=== PATIENT | female | born 1950 | race Caucasian/White ===

== ENCOUNTER → 2020-02-21 14:28 | Outpatient (CLI) | payer MEDICARE, BC, SELFPAY ==
[2020-02-21 17:55] LABS: Absolute Lymphocyte Count 1.09 X10^3/uL (0.83-4.51); Absolute Neutrophil Count 3.9 X10^3/uL (2.0-7.7); Basophil# 0.04 X10^3/uL; Basophil% 0.7 % (0-1); Eosinophil# 0.57 X10^3/uL; Eosinophils% 9.5 % (0-5); Erythrocyte Sedimentation Rate 7 mm/hr (0-30); Hematocrit 39.9 % (37-47); Hemoglobin 12.1 g/dL (12.0-15.0); Lymphocyte # 1.09 X10^3/ul (4.0); Lymphocyte % 18.1 % (19-41); Mean Corp Hgb Conc 30.3 g/dL (32-36); Mean Corpuscular Hgb 25.3 pg (27.0-32.0); Mean Corpuscular Volume 83.3 fL (81-99); Monocyte% 6.7 % (0-10); NRBC Flagged by Analyzer 0 % (0-5); Neutrophil # 3.89 X10^3/uL (2.7-7.7); Neutrophil % 64.7 % (47-70); Platelet Count 421 K/mm3 (150-450); RBC Distribution Width CV 17.2 % (11.6-14.6); RBC Distribution Width SD 52.9 fl (35.1-43.9); Red Blood Count 4.79 M/mm3 (4.2-5.4)
[2020-02-21 18:11] LABS: ALB/GLOB Ratio 1.4 RATIO (0.9-2.4); AST(SGOT) 17 U/L (15-37); Alanine Aminotransfer ALT/SGPT 28 U/L (13-56); Albumin, Serum 4.4 g/dL (3.2-5.0); Alkaline Phosphatase 105 U/L (45-117); Anion Gap 6 (5-15); BUN 18 mg/dL (7-18); BUN/Creat Ratio 21.8 RATIO (10-20); CRP 4.95 mg/L (0.0-3.0); Calcium,Total 9.4 mg/dL (8.5-10.1); Chloride 101 mmol/L (98-107); Creatinine, Serum 0.83 mg/dL (0.55-1.02); EST Glomerular Filtration Rate 73 mL/min (>60); Est Glom Filt Rate - Afr Amer 88 mL/min (>60); Globulin 3.2 g/dL (2.2-4.2); Glucose 82 mg/dL (74-106); Potassium 3.7 mmol/L (3.5-5.1); Protein, Total 7.6 g/dL (6.4-8.2); Rheumatoid Factor < 10.0 IU/mL (<15); Sodium Level 136 mmol/L (136-145)
[2020-02-24 09:33] LABS: Hepatitis B Surface Antibody Non-Reactive; Hepatitis B Surface Antigen Non-Reactive (Nonreactive); Hepatitis C Antibody Non-Reactive (Nonreactive)
[2020-02-24 16:26] LABS: ANTINUCLEAR ANTIBODIES DIRECT Negative (Negative)
[2020-02-26 03:07] LABS: QNTFERON TB Mitogen Value > 10.00 IU/mL (.); QNTFERON TB Nil Value 0.04 IU/mL (.); QNTFERON TB1+ Ag Value 0.05 IU/mL (.); QNTFERON TB2+ Ag Value 0.03 IU/mL (.)
[2020-02-26 05:34] LABS: CCP IgG Antibodies 5 units (0-19); Hepatitis B Core AB IgM Negative (Negative); QNTIFERON TB Positive Criteria Negative (Negative)
== END ==
PROVIDERS: PCP Family Medicine; Referring Provider Internal Medicine Rheumatology; Visit Provider Internal Medicine Rheumatology
DX: L40.59 Other psoriatic arthropathy (principal); M18.0 Bilateral primary osteoarthritis of first carpometacarpal joints; L40.8 Other psoriasis; M47.892 Other spondylosis, cervical region; M47.897 Other spondylosis, lumbosacral region
CPT/HCPCS: 36415; 80053; 85025; 85652; 86038; 86140; 86200; 86431; 86480; 86705; 86706; 86803; 87340

== ENCOUNTER → 2020-04-06 11:16 | Outpatient (CLI) | payer MEDICARE, BC, SELFPAY ==
[2020-04-06 12:32] LABS: Absolute Lymphocyte Count 1.06 X10^3/uL (0.83-4.51); Absolute Neutrophil Count 3.9 X10^3/uL (2.0-7.7); Basophil# 0.06 X10^3/uL; Eosinophil# 0.31 X10^3/uL; Eosinophils% 5.3 % (0-5); Hematocrit 39.8 % (37-47); Hemoglobin 12.1 g/dL (12.0-15.0); Lymphocyte # 1.06 X10^3/ul (4.0); Lymphocyte % 18.2 % (19-41); Mean Corp Hgb Conc 30.4 g/dL (32-36); Mean Corpuscular Hgb 25.7 pg (27.0-32.0); Mean Corpuscular Volume 84.5 fL (81-99); Mean Platelet Vol. 9.6 fl (6.2-12.0); Monocyte# 0.51 X10^3/uL; Monocyte% 8.7 % (0-10); NRBC Flagged by Analyzer 0 % (0-5); Neutrophil # 3.88 X10^3/uL (2.7-7.7); Neutrophil % 66.5 % (47-70); Platelet Count 390 K/mm3 (150-450); RBC Distribution Width CV 16.5 % (11.6-14.6); RBC Distribution Width SD 50.4 fl (35.1-43.9); Red Blood Count 4.71 M/mm3 (4.2-5.4); White Blood Count 5.8 K/mm3 (4.4-11.0)
[2020-04-06 13:03] LABS: ALB/GLOB Ratio 1.1 RATIO (0.9-2.4); AST(SGOT) 11 U/L (15-37); Alanine Aminotransfer ALT/SGPT 21 U/L (13-56); Alkaline Phosphatase 99 U/L (45-117); Anion Gap 7 (5-15); BUN 17 mg/dL (7-18); BUN/Creat Ratio 20.9 RATIO (10-20); Calcium,Total 9.5 mg/dL (8.5-10.1); Chloride 104 mmol/L (98-107); Creatinine, Serum 0.81 mg/dL (0.55-1.02); EST Glomerular Filtration Rate 74 mL/min (>60); Est Glom Filt Rate - Afr Amer 90 mL/min (>60); Globulin 3.6 g/dL (2.2-4.2); Glucose 79 mg/dL (74-106); Protein, Total 7.6 g/dL (6.4-8.2); Sodium Level 139 mmol/L (136-145)
== END ==
PROVIDERS: PCP Family Medicine; Referring Provider Internal Medicine Rheumatology; Visit Provider Internal Medicine Rheumatology
DX: L40.59 Other psoriatic arthropathy (principal); M18.0 Bilateral primary osteoarthritis of first carpometacarpal joints; M65.341 Trigger finger, right ring finger; L40.8 Other psoriasis; M47.897 Other spondylosis, lumbosacral region; M47.892 Other spondylosis, cervical region; K21.9 Gastro-esophageal reflux disease without esophagitis; F41.9 Anxiety disorder, unspecified; F32.9 Major depressive disorder, single episode, unspecified; E78.5 Hyperlipidemia, unspecified; I83.93 Asymptomatic varicose veins of bilateral lower extremities
CPT/HCPCS: 36415; 80053; 85025

== ENCOUNTER → 2020-05-22 11:08 | Outpatient (CLI) | payer MEDICARE, BC, SELFPAY ==
[2020-05-22 15:30] LABS: Absolute Lymphocyte Count 0.66 X10^3/uL (0.83-4.51); Absolute Neutrophil Count 3.7 X10^3/uL (2.0-7.7); Basophil# 0.06 X10^3/uL; Basophil% 1.1 % (0-1); Eosinophils% 3.7 % (0-5); Hematocrit 36.6 % (37-47); Lymphocyte # 0.66 X10^3/ul (4.0); Lymphocyte % 12.1 % (19-41); Mean Corp Hgb Conc 30.1 g/dL (32-36); Mean Corpuscular Hgb 26.4 pg (27.0-32.0); Mean Platelet Vol. 9.7 fl (6.2-12.0); Monocyte# 0.77 X10^3/uL; Monocyte% 14.1 % (0-10); NRBC Flagged by Analyzer 0 % (0-5); Neutrophil # 3.65 X10^3/uL (2.7-7.7); Neutrophil % 66.8 % (47-70); Platelet Count 503 K/mm3 (150-450); RBC Distribution Width CV 17.9 % (11.6-14.6); RBC Distribution Width SD 56.1 fl (35.1-43.9); Red Blood Count 4.16 M/mm3 (4.2-5.4); White Blood Count 5.5 K/mm3 (4.4-11.0)
[2020-05-22 15:41] LABS: ALB/GLOB Ratio 0.9 RATIO (0.9-2.4); AST(SGOT) 15 U/L (15-37); Alanine Aminotransfer ALT/SGPT 25 U/L (13-56); Albumin, Serum 3.6 g/dL (3.2-5.0); Alkaline Phosphatase 111 U/L (45-117); Anion Gap 6 (5-15); BUN 11 mg/dL (7-18); BUN/Creat Ratio 15.2 RATIO (10-20); Chloride 103 mmol/L (98-107); Creatinine, Serum 0.72 mg/dL (0.55-1.02); EST Glomerular Filtration Rate 84 mL/min (>60); Est Glom Filt Rate - Afr Amer 102 mL/min (>60); Globulin 3.8 g/dL (2.2-4.2); Glucose 79 mg/dL (74-106); Potassium 3.7 mmol/L (3.5-5.1); Protein, Total 7.4 g/dL (6.4-8.2); Sodium Level 138 mmol/L (136-145)
== END ==
PROVIDERS: PCP Family Medicine; Referring Provider Internal Medicine Rheumatology; Visit Provider Internal Medicine Rheumatology
DX: L40.59 Other psoriatic arthropathy (principal); Z79.899 Other long term (current) drug therapy; M18.0 Bilateral primary osteoarthritis of first carpometacarpal joints; M65.341 Trigger finger, right ring finger; L40.8 Other psoriasis; M47.892 Other spondylosis, cervical region; M47.897 Other spondylosis, lumbosacral region; K21.9 Gastro-esophageal reflux disease without esophagitis; F41.9 Anxiety disorder, unspecified; F32.9 Major depressive disorder, single episode, unspecified; E78.5 Hyperlipidemia, unspecified; I83.93 Asymptomatic varicose veins of bilateral lower extremities
CPT/HCPCS: 36415; 80053; 85025

== ENCOUNTER → 2020-08-04 11:37 | Outpatient (CLI) | payer MEDICARE, BC, SELFPAY ==
[2020-08-04 15:19] LABS: Absolute Lymphocyte Count 0.96 X10^3/uL (0.83-4.51); Absolute Neutrophil Count 3.5 X10^3/uL (2.0-7.7); Basophil# 0.03 X10^3/uL; Basophil% 0.6 % (0-1); Eosinophil# 0.26 X10^3/uL; Eosinophils% 4.9 % (0-5); Hematocrit 38.7 % (37-47); Hemoglobin 12.1 g/dL (12.0-15.0); Lymphocyte # 0.96 X10^3/ul (4.0); Lymphocyte % 18.2 % (19-41); Mean Corp Hgb Conc 31.3 g/dL (32-36); Mean Corpuscular Hgb 26.8 pg (27.0-32.0); Mean Corpuscular Volume 85.8 fL (81-99); Mean Platelet Vol. 9.8 fl (6.2-12.0); Monocyte# 0.45 X10^3/uL; Monocyte% 8.5 % (0-10); NRBC Flagged by Analyzer 0 % (0-5); Neutrophil # 3.54 X10^3/uL (2.7-7.7); Neutrophil % 67.2 % (47-70); Platelet Count 408 K/mm3 (150-450); RBC Distribution Width SD 52.7 fl (35.1-43.9); Red Blood Count 4.51 M/mm3 (4.2-5.4); White Blood Count 5.3 K/mm3 (4.4-11.0)
[2020-08-04 15:52] LABS: ALB/GLOB Ratio 1.2 RATIO (0.9-2.4); AST(SGOT) 15 U/L (15-37); Alanine Aminotransfer ALT/SGPT 24 U/L (13-56); Albumin, Serum 4.1 g/dL (3.2-5.0); Alkaline Phosphatase 93 U/L (45-117); Anion Gap 7 (5-15); BUN 12 mg/dL (7-18); BUN/Creat Ratio 14.3 RATIO (10-20); Calcium,Total 9.4 mg/dL (8.5-10.1); Chloride 103 mmol/L (98-107); Creatinine, Serum 0.84 mg/dL (0.55-1.02); EST Glomerular Filtration Rate 71 mL/min (>60); Est Glom Filt Rate - Afr Amer 86 mL/min (>60); Globulin 3.4 g/dL (2.2-4.2); Glucose 80 mg/dL (74-106); Potassium 3.9 mmol/L (3.5-5.1); Protein, Total 7.5 g/dL (6.4-8.2); Sodium Level 138 mmol/L (136-145)
== END ==
PROVIDERS: PCP Family Medicine; Referring Provider Internal Medicine Rheumatology; Visit Provider Internal Medicine Rheumatology
DX: L40.59 Other psoriatic arthropathy (principal); Z79.899 Other long term (current) drug therapy; M18.0 Bilateral primary osteoarthritis of first carpometacarpal joints; M65.341 Trigger finger, right ring finger; L40.8 Other psoriasis; M47.892 Other spondylosis, cervical region; M47.897 Other spondylosis, lumbosacral region; K21.9 Gastro-esophageal reflux disease without esophagitis; F41.9 Anxiety disorder, unspecified; F32.9 Major depressive disorder, single episode, unspecified; E78.5 Hyperlipidemia, unspecified; I83.93 Asymptomatic varicose veins of bilateral lower extremities
CPT/HCPCS: 36415; 80053; 85025

== ENCOUNTER → 2020-11-02 09:03 | Outpatient (CLI) | payer MEDICARE, BC, SELFPAY ==
[2020-11-02 10:38] LABS: Absolute Lymphocyte Count 0.83 X10^3/uL (0.83-4.51); Absolute Neutrophil Count 2.9 X10^3/uL (2.0-7.7); Basophil# 0.04 X10^3/uL; Basophil% 0.9 % (0-1); Eosinophil# 0.22 X10^3/uL; Eosinophils% 5.2 % (0-5); Hematocrit 37.9 % (37-47); Hemoglobin 12.1 g/dL (12.0-15.0); Lymphocyte # 0.83 X10^3/ul (0.83-4.51); Lymphocyte % 19.5 % (19-41); Mean Corp Hgb Conc 31.9 g/dL (32-36); Mean Corpuscular Hgb 27.7 pg (27.0-32.0); Mean Corpuscular Volume 86.7 fL (81-99); Mean Platelet Vol. 9.8 fl (6.2-12.0); Monocyte# 0.29 X10^3/uL; Monocyte% 6.8 % (0-10); NRBC Flagged by Analyzer 0 % (0-5); Neutrophil # 2.86 X10^3/uL (2.7-7.7); Neutrophil % 67.4 % (47-70); Platelet Count 369 K/mm3 (150-450); RBC Distribution Width CV 16.1 % (11.6-14.6); RBC Distribution Width SD 50.7 fl (35.1-43.9); Red Blood Count 4.37 M/mm3 (4.2-5.4); White Blood Count 4.3 K/mm3 (4.4-11.0)
[2020-11-02 11:11] LABS: ALB/GLOB Ratio 1.2 RATIO (0.9-2.4); AST(SGOT) 15 U/L (15-37); Alanine Aminotransfer ALT/SGPT 22 U/L (13-56); Alkaline Phosphatase 94 U/L (45-117); Anion Gap 8 (5-15); BUN 13 mg/dL (7-18); BUN/Creat Ratio 17.5 RATIO (10-20); Calcium,Total 9.3 mg/dL (8.5-10.1); Chloride 103 mmol/L (98-107); Creatinine, Serum 0.74 mg/dL (0.55-1.02); EST Glomerular Filtration Rate 82 mL/min (>60); Est Glom Filt Rate - Afr Amer 99 mL/min (>60); Globulin 3.2 g/dL (2.2-4.2); Glucose 94 mg/dL (74-106); Potassium 3.5 mmol/L (3.5-5.1); Protein, Total 7.2 g/dL (6.4-8.2); Sodium Level 140 mmol/L (136-145)
== END ==
PROVIDERS: PCP Family Medicine; Referring Provider Internal Medicine Rheumatology; Visit Provider Internal Medicine Rheumatology
DX: L40.59 Other psoriatic arthropathy (principal); Z79.899 Other long term (current) drug therapy; M18.0 Bilateral primary osteoarthritis of first carpometacarpal joints; M65.341 Trigger finger, right ring finger; L40.8 Other psoriasis; M47.892 Other spondylosis, cervical region; M47.897 Other spondylosis, lumbosacral region; K21.9 Gastro-esophageal reflux disease without esophagitis; F41.9 Anxiety disorder, unspecified; F32.9 Major depressive disorder, single episode, unspecified; E78.5 Hyperlipidemia, unspecified; I83.93 Asymptomatic varicose veins of bilateral lower extremities
CPT/HCPCS: 36415; 80053; 85025

== ENCOUNTER → 2021-01-19 11:16 | Outpatient (CLI) | payer MEDICARE, BC, SELFPAY ==
[2021-01-19 15:19] LABS: Absolute Lymphocyte Count 0.98 X10^3/uL (0.83-4.51); Basophil# 0.03 X10^3/uL; Basophil% 0.6 % (0-1); Eosinophils% 4.3 % (0-5); Hematocrit 39.8 % (37-47); Hemoglobin 12.5 g/dL (12.0-15.0); Lymphocyte # 0.98 X10^3/ul (0.83-4.51); Mean Corp Hgb Conc 31.4 g/dL (32-36); Mean Corpuscular Hgb 27.4 pg (27.0-32.0); Mean Corpuscular Volume 87.1 fL (81-99); Mean Platelet Vol. 9.7 fl (6.2-12.0); Monocyte# 0.41 X10^3/uL; Monocyte% 8.8 % (0-10); NRBC Flagged by Analyzer 0 % (0-5); Neutrophil # 3.03 X10^3/uL (2.7-7.7); Neutrophil % 65.1 % (47-70); Platelet Count 381 K/mm3 (150-450); RBC Distribution Width CV 15.9 % (11.6-14.6); Red Blood Count 4.57 M/mm3 (4.2-5.4); White Blood Count 4.7 K/mm3 (4.4-11.0)
[2021-01-19 15:47] LABS: ALB/GLOB Ratio 1.3 RATIO (0.9-2.4); AST(SGOT) 13 U/L (15-37); Alanine Aminotransfer ALT/SGPT 25 U/L (13-56); Albumin, Serum 4.3 g/dL (3.2-5.0); Alkaline Phosphatase 99 U/L (45-117); Anion Gap 7 (5-15); BUN 13 mg/dL (7-18); BUN/Creat Ratio 18.2 RATIO (10-20); Calcium,Total 9.6 mg/dL (8.5-10.1); Chloride 102 mmol/L (98-107); Creatinine, Serum 0.71 mg/dL (0.55-1.02); EST Glomerular Filtration Rate 86 mL/min (>60); Est Glom Filt Rate - Afr Amer 104 mL/min (>60); Globulin 3.2 g/dL (2.2-4.2); Glucose 79 mg/dL (74-106); Potassium 4.2 mmol/L (3.5-5.1); Protein, Total 7.5 g/dL (6.4-8.2); Sodium Level 137 mmol/L (136-145)
== END ==
PROVIDERS: PCP Family Medicine; Referring Provider Internal Medicine Rheumatology; Visit Provider Internal Medicine Rheumatology
DX: L40.59 Other psoriatic arthropathy (principal); Z79.899 Other long term (current) drug therapy; M18.0 Bilateral primary osteoarthritis of first carpometacarpal joints; M65.341 Trigger finger, right ring finger; L40.8 Other psoriasis
CPT/HCPCS: 36415; 80053; 85025

== ENCOUNTER → 2021-04-07 12:03 | Outpatient (CLI) | payer MEDICARE, BC, SELFPAY ==
[2021-04-07 15:09] LABS: Absolute Neutrophil Count 3.3 X10^3/uL (2.0-7.7); Basophil# 0.05 X10^3/uL; Eosinophil# 0.14 X10^3/uL; Eosinophils% 2.9 % (0-5); Hematocrit 37.7 % (37-47); Hemoglobin 12.1 g/dL (12.0-15.0); Lymphocyte % 18.6 % (19-41); Mean Corp Hgb Conc 32.1 g/dL (32-36); Mean Corpuscular Hgb 27.6 pg (27.0-32.0); Mean Corpuscular Volume 86.1 fL (81-99); Mean Platelet Vol. 9.7 fl (6.2-12.0); Monocyte# 0.41 X10^3/uL; Monocyte% 8.5 % (0-10); NRBC Flagged by Analyzer 0 % (0-5); Neutrophil # 3.33 X10^3/uL (2.7-7.7); Neutrophil % 68.6 % (47-70); Platelet Count 367 K/mm3 (150-450); RBC Distribution Width CV 15.9 % (11.6-14.6); RBC Distribution Width SD 50.1 fl (35.1-43.9); Red Blood Count 4.38 M/mm3 (4.2-5.4); White Blood Count 4.9 K/mm3 (4.4-11.0)
[2021-04-07 15:22] LABS: ALB/GLOB Ratio 1.2 RATIO (0.9-2.4); AST(SGOT) 14 U/L (15-37); Alanine Aminotransfer ALT/SGPT 22 U/L (13-56); Albumin, Serum 4.1 g/dL (3.2-5.0); Alkaline Phosphatase 102 U/L (45-117); Anion Gap 5 (5-15); BUN 14 mg/dL (7-18); BUN/Creat Ratio 17.2 RATIO (10-20); Calcium,Total 9.4 mg/dL (8.5-10.1); Chloride 103 mmol/L (98-107); Creatinine, Serum 0.82 mg/dL (0.55-1.02); EST Glomerular Filtration Rate 73 mL/min (>60); Est Glom Filt Rate - Afr Amer 89 mL/min (>60); Globulin 3.3 g/dL (2.2-4.2); Glucose 73 mg/dL (74-106); Potassium 3.9 mmol/L (3.5-5.1); Protein, Total 7.4 g/dL (6.4-8.2); Sodium Level 138 mmol/L (136-145)
== END ==
PROVIDERS: PCP Family Medicine; Referring Provider Internal Medicine Rheumatology; Visit Provider Internal Medicine Rheumatology
DX: L40.59 Other psoriatic arthropathy (principal); Z79.899 Other long term (current) drug therapy; M18.0 Bilateral primary osteoarthritis of first carpometacarpal joints; M65.341 Trigger finger, right ring finger; L40.8 Other psoriasis; M47.892 Other spondylosis, cervical region; M47.897 Other spondylosis, lumbosacral region; K21.9 Gastro-esophageal reflux disease without esophagitis; F41.9 Anxiety disorder, unspecified; F32.9 Major depressive disorder, single episode, unspecified; E78.5 Hyperlipidemia, unspecified; I83.93 Asymptomatic varicose veins of bilateral lower extremities
CPT/HCPCS: 36415; 80053; 85025

== ENCOUNTER 2021-07-01 12:06 | Outpatient (CLI) | payer MEDICARE, BC, SELFPAY ==
[2021-07-01 15:13] LABS: Absolute Lymphocyte Count 1.06 X10^3/uL (0.83-4.51); Absolute Neutrophil Count 3.7 X10^3/uL (2.0-7.7); Basophil# 0.05 X10^3/uL; Basophil% 0.9 % (0-1); Eosinophils% 3.7 % (0-5); Hematocrit 38.3 % (37-47); Hemoglobin 11.6 g/dL (12.0-15.0); Lymphocyte # 1.06 X10^3/ul (0.83-4.51); Lymphocyte % 19.4 % (19-41); Mean Corp Hgb Conc 30.3 g/dL (32-36); Mean Corpuscular Hgb 26.1 pg (27.0-32.0); Mean Corpuscular Volume 86.1 fL (81-99); Mean Platelet Vol. 9.8 fl (6.2-12.0); Monocyte# 0.47 X10^3/uL; Monocyte% 8.6 % (0-10); NRBC Flagged by Analyzer 0 % (0-5); Neutrophil # 3.65 X10^3/uL (2.7-7.7); Neutrophil % 66.7 % (47-70); Platelet Count 439 K/mm3 (150-450); RBC Distribution Width CV 15.9 % (11.6-14.6); Red Blood Count 4.45 M/mm3 (4.2-5.4); White Blood Count 5.5 K/mm3 (4.4-11.0)
[2021-07-01 15:53] LABS: ALB/GLOB Ratio 1.2 RATIO (0.9-2.4); AST(SGOT) 12 U/L (15-37); Alanine Aminotransfer ALT/SGPT 26 U/L (13-56); Albumin, Serum 4.2 g/dL (3.2-5.0); Alkaline Phosphatase 98 U/L (45-117); Anion Gap 7 (5-15); BUN 13 mg/dL (7-18); BUN/Creat Ratio 17.2 RATIO (10-20); Calcium,Total 9.6 mg/dL (8.5-10.1); Chloride 103 mmol/L (98-107); Creatinine, Serum 0.76 mg/dL (0.55-1.02); EST Glomerular Filtration Rate 80 mL/min (>60); Est Glom Filt Rate - Afr Amer 97 mL/min (>60); Globulin 3.4 g/dL (2.2-4.2); Glucose 88 mg/dL (74-106); Potassium 3.8 mmol/L (3.5-5.1); Protein, Total 7.6 g/dL (6.4-8.2); Sodium Level 138 mmol/L (136-145)
== END 2021-07-01 23:59 | disposition short-term general hospital (02) ==
LOC: MTLAB 12:08
PROVIDERS: PCP Family Medicine; Referring Provider Internal Medicine Rheumatology; Visit Provider Internal Medicine Rheumatology
DX: L40.59 Other psoriatic arthropathy (principal); M81.0 Age-related osteoporosis without current pathological fracture; M65.341 Trigger finger, right ring finger; L40.8 Other psoriasis; M47.892 Other spondylosis, cervical region; M47.897 Other spondylosis, lumbosacral region; K21.9 Gastro-esophageal reflux disease without esophagitis; F32.A Depression, unspecified; F41.9 Anxiety disorder, unspecified; E78.5 Hyperlipidemia, unspecified; I83.93 Asymptomatic varicose veins of bilateral lower extremities; Z79.899 Other long term (current) drug therapy
CPT/HCPCS: 36415; 80053; 85025

== ENCOUNTER 2021-09-15 12:53 | Outpatient (CLI) | payer MEDICARE, BC, SELFPAY ==
[2021-09-15 15:00] LABS: Absolute Lymphocyte Count 0.76 X10^3/uL (0.83-4.51); Basophil# 0.03 X10^3/uL; Basophil% 0.7 % (0-1); Eosinophils% 4.5 % (0-5); Hematocrit 38.2 % (37-47); Hemoglobin 11.6 g/dL (12.0-15.0); Lymphocyte # 0.76 X10^3/ul (0.83-4.51); Lymphocyte % 17.2 % (19-41); Mean Corp Hgb Conc 30.4 g/dL (32-36); Mean Corpuscular Hgb 26.1 pg (27.0-32.0); Mean Corpuscular Volume 85.8 fL (81-99); Mean Platelet Vol. 10.2 fl (6.2-12.0); Monocyte# 0.42 X10^3/uL; Monocyte% 9.5 % (0-10); NRBC Flagged by Analyzer 0 % (0-5); Neutrophil # 2.97 X10^3/uL (2.7-7.7); Neutrophil % 67.4 % (47-70); Platelet Count 371 K/mm3 (150-450); RBC Distribution Width CV 16.2 % (11.6-14.6); RBC Distribution Width SD 51.5 fl (35.1-43.9); Red Blood Count 4.45 M/mm3 (4.2-5.4); White Blood Count 4.4 K/mm3 (4.4-11.0)
[2021-09-15 15:21] LABS: ALB/GLOB Ratio 1.2 RATIO (0.9-2.4); AST(SGOT) 13 U/L (15-37); Alanine Aminotransfer ALT/SGPT 20 U/L (13-56); Alkaline Phosphatase 96 U/L (45-117); Anion Gap 5 (5-15); BUN 11 mg/dL (7-18); BUN/Creat Ratio 12.2 RATIO (10-20); Calcium,Total 9.2 mg/dL (8.5-10.1); Chloride 106 mmol/L (98-107); EST Glomerular Filtration Rate 66 mL/min (>60); Est Glom Filt Rate - Afr Amer 79 mL/min (>60); Globulin 3.2 g/dL (2.2-4.2); Glucose 113 mg/dL (74-106); Potassium 3.7 mmol/L (3.5-5.1); Protein, Total 7.2 g/dL (6.4-8.2); Sodium Level 138 mmol/L (136-145)
== END 2021-09-15 23:59 | disposition home or self-care (01) ==
LOC: MTLAB 12:55
PROVIDERS: PCP Family Medicine; Referring Provider Internal Medicine Rheumatology; Visit Provider Internal Medicine Rheumatology
DX: L40.59 Other psoriatic arthropathy (principal); M18.0 Bilateral primary osteoarthritis of first carpometacarpal joints; M65.341 Trigger finger, right ring finger; L40.8 Other psoriasis; M47.892 Other spondylosis, cervical region; M47.897 Other spondylosis, lumbosacral region; K21.9 Gastro-esophageal reflux disease without esophagitis; F41.9 Anxiety disorder, unspecified; F32.9 Major depressive disorder, single episode, unspecified; E78.5 Hyperlipidemia, unspecified; I83.93 Asymptomatic varicose veins of bilateral lower extremities; Z79.899 Other long term (current) drug therapy
CPT/HCPCS: 36415; 80053; 85025

== ENCOUNTER → 2021-11-01 | Outpatient (CLI) | payer MEDICARE, BC, SELFPAY ==
[2021-11-01 10:05] LABS: Absolute Lymphocyte Count 0.81 X10^3/uL (0.83-4.51); Absolute Neutrophil Count 2.5 X10^3/uL (2.0-7.7); Basophil# 0.03 X10^3/uL; Basophil% 0.8 % (0-1); Eosinophil# 0.23 X10^3/uL; Eosinophils% 5.8 % (0-5); Lymphocyte # 0.81 X10^3/ul (0.83-4.51); Lymphocyte % 20.6 % (19-41); Mean Corp Hgb Conc 31.6 g/dL (32-36); Mean Corpuscular Volume 82.3 fL (81-99); Mean Platelet Vol. 9.3 fl (6.2-12.0); Monocyte# 0.33 X10^3/uL; Monocyte% 8.4 % (0-10); NRBC Flagged by Analyzer 0 % (0-5); Neutrophil # 2.53 X10^3/uL (2.7-7.7); Neutrophil % 64.1 % (47-70); Platelet Count 318 K/mm3 (150-450); RBC Distribution Width CV 16.3 % (11.6-14.6); RBC Distribution Width SD 49.1 fl (35.1-43.9); Red Blood Count 4.62 M/mm3 (4.2-5.4); White Blood Count 3.9 K/mm3 (4.4-11.0)
[2021-11-01 10:44] LABS: Albumin, Serum 3.8 g/dL (3.2-5.0); BUN 9 mg/dL (7-18); BUN/Creat Ratio 11.2 RATIO (10-20); EST Glomerular Filtration Rate 75 mL/min (>60); Est Glom Filt Rate - Afr Amer 91 mL/min (>60); Glucose 109 mg/dL (74-106); Protein, Total 7.3 g/dL (6.4-8.2)
[2021-11-01 10:45] LABS: ALB/GLOB Ratio 1.1 RATIO (0.9-2.4); AST(SGOT) 11 U/L (15-37); Alanine Aminotransfer ALT/SGPT 23 U/L (13-56); Alkaline Phosphatase 109 U/L (45-117); Anion Gap 7 (5-15); Calcium,Total 9.2 mg/dL (8.5-10.1); Chloride 105 mmol/L (98-107); Globulin 3.5 g/dL (2.2-4.2); Potassium 3.3 mmol/L (3.5-5.1); Sodium Level 139 mmol/L (136-145)
== END | disposition home or self-care (01) ==
PROVIDERS: PCP Family Medicine; Referring Provider Internal Medicine Rheumatology; Visit Provider Internal Medicine Rheumatology
DX: L40.59 Other psoriatic arthropathy (principal); Z79.899 Other long term (current) drug therapy; M18.0 Bilateral primary osteoarthritis of first carpometacarpal joints; M65.341 Trigger finger, right ring finger; L40.8 Other psoriasis; M47.892 Other spondylosis, cervical region; M47.897 Other spondylosis, lumbosacral region; K21.9 Gastro-esophageal reflux disease without esophagitis; F41.9 Anxiety disorder, unspecified; F32.9 Major depressive disorder, single episode, unspecified; E78.5 Hyperlipidemia, unspecified; I83.93 Asymptomatic varicose veins of bilateral lower extremities
CPT/HCPCS: 36415; 80053; 85025

== ENCOUNTER → 2022-01-21 | Outpatient (CLI) | payer MEDICARE, BC, SELFPAY ==
[2022-01-21 12:43] LABS: ALB/GLOB Ratio 1.2 RATIO (0.9-2.4); AST(SGOT) 18 U/L (15-37); Alanine Aminotransfer ALT/SGPT 23 U/L (13-56); Albumin, Serum 3.9 g/dL (3.2-5.0); Alkaline Phosphatase 84 U/L (45-117); Anion Gap 5 (5-15); BUN 10 mg/dL (7-18); BUN/Creat Ratio 12.7 RATIO (10-20); Chloride 104 mmol/L (98-107); Creatinine, Serum 0.79 mg/dL (0.55-1.02); EST Glomerular Filtration Rate 76 mL/min (>60); Est Glom Filt Rate - Afr Amer 92 mL/min (>60); Globulin 3.3 g/dL (2.2-4.2); Glucose 108 mg/dL (74-106); Potassium 3.7 mmol/L (3.5-5.1); Protein, Total 7.2 g/dL (6.4-8.2); Sodium Level 139 mmol/L (136-145)
[2022-01-21 12:47] LABS: Absolute Lymphocyte Count 0.94 X10^3/uL (0.83-4.51); Absolute Neutrophil Count 3.2 X10^3/uL (2.0-7.7); Basophil# 0.03 X10^3/uL; Basophil% 0.6 % (0-1); Eosinophil# 0.21 X10^3/uL; Eosinophils% 4.3 % (0-5); Hematocrit 38.6 % (37-47); Hemoglobin 11.6 g/dL (12.0-15.0); Lymphocyte # 0.94 X10^3/ul (0.83-4.51); Lymphocyte % 19.3 % (19-41); Mean Corp Hgb Conc 30.1 g/dL (32-36); Mean Corpuscular Hgb 25.7 pg (27.0-32.0); Mean Corpuscular Volume 85.4 fL (81-99); Mean Platelet Vol. 10.5 fl (6.2-12.0); Monocyte# 0.49 X10^3/uL; Monocyte% 10.1 % (0-10); NRBC Flagged by Analyzer 0 % (0-5); Neutrophil # 3.17 X10^3/uL (2.7-7.7); Neutrophil % 65.3 % (47-70); Platelet Count 381 K/mm3 (150-450); RBC Distribution Width CV 15.9 % (11.6-14.6); RBC Distribution Width SD 49.3 fl (35.1-43.9); Red Blood Count 4.52 M/mm3 (4.2-5.4); White Blood Count 4.9 K/mm3 (4.4-11.0)
== END | disposition home or self-care (01) ==
LOC: MTLAB 09:45
PROVIDERS: PCP Family Medicine; Referring Provider Internal Medicine Rheumatology; Visit Provider Internal Medicine Rheumatology
DX: L40.59 Other psoriatic arthropathy (principal); Z79.899 Other long term (current) drug therapy; M18.0 Bilateral primary osteoarthritis of first carpometacarpal joints; M65.341 Trigger finger, right ring finger; L40.8 Other psoriasis; M47.892 Other spondylosis, cervical region; M47.897 Other spondylosis, lumbosacral region; K21.9 Gastro-esophageal reflux disease without esophagitis; F41.9 Anxiety disorder, unspecified; F32.9 Major depressive disorder, single episode, unspecified; E78.5 Hyperlipidemia, unspecified; I83.93 Asymptomatic varicose veins of bilateral lower extremities
CPT/HCPCS: 36415; 80053; 85025

== ENCOUNTER → 2022-04-11 | Outpatient (CLI) | payer MEDICARE, BC, SELFPAY ==
[2022-04-11 12:39] LABS: Absolute Lymphocyte Count 0.85 X10^3/uL (0.83-4.51); Absolute Neutrophil Count 3.1 X10^3/uL (2.0-7.7); Basophil# 0.04 X10^3/uL; Basophil% 0.8 % (0-1); Eosinophil# 0.33 X10^3/uL; Eosinophils% 6.9 % (0-5); Hemoglobin 12.3 g/dL (12.0-15.0); Lymphocyte # 0.85 X10^3/ul (0.83-4.51); Lymphocyte % 17.7 % (19-41); Mean Corp Hgb Conc 32.4 g/dL (32-36); Mean Corpuscular Volume 83.3 fL (81-99); Mean Platelet Vol. 9.8 fl (6.2-12.0); Monocyte# 0.43 X10^3/uL; Monocyte% 8.9 % (0-10); NRBC Flagged by Analyzer 0 % (0-5); Neutrophil # 3.13 X10^3/uL (2.7-7.7); Neutrophil % 65.1 % (47-70); Platelet Count 370 K/mm3 (150-450); RBC Distribution Width CV 16.3 % (11.6-14.6); RBC Distribution Width SD 49.2 fl (35.1-43.9); Red Blood Count 4.56 M/mm3 (4.2-5.4); White Blood Count 4.8 K/mm3 (4.4-11.0)
[2022-04-11 13:23] LABS: ALB/GLOB Ratio 1.4 RATIO (0.9-2.4); AST(SGOT) 19 U/L (15-37); Alanine Aminotransfer ALT/SGPT 23 U/L (13-56); Albumin, Serum 4.4 g/dL (3.2-5.0); Alkaline Phosphatase 98 U/L (45-117); Anion Gap 6 (5-15); BUN 10 mg/dL (7-18); BUN/Creat Ratio 13.5 RATIO (10-20); Chloride 103 mmol/L (98-107); Creatinine, Serum 0.74 mg/dL (0.55-1.02); EST Glomerular Filtration Rate 82 mL/min (>60); Est Glom Filt Rate - Afr Amer 99 mL/min (>60); Globulin 3.2 g/dL (2.2-4.2); Glucose 95 mg/dL (74-106); Potassium 3.5 mmol/L (3.5-5.1); Protein, Total 7.6 g/dL (6.4-8.2); Sodium Level 139 mmol/L (136-145)
== END | disposition home or self-care (01) ==
PROVIDERS: PCP Family Medicine; Referring Provider Internal Medicine Rheumatology; Visit Provider Internal Medicine Rheumatology
DX: L40.59 Other psoriatic arthropathy (principal); M18.0 Bilateral primary osteoarthritis of first carpometacarpal joints; M65.341 Trigger finger, right ring finger; L40.8 Other psoriasis; M47.892 Other spondylosis, cervical region; M47.897 Other spondylosis, lumbosacral region; K21.9 Gastro-esophageal reflux disease without esophagitis; E78.5 Hyperlipidemia, unspecified; I83.93 Asymptomatic varicose veins of bilateral lower extremities; Z79.899 Other long term (current) drug therapy
CPT/HCPCS: 36415; 80053; 85025

== ENCOUNTER → 2022-04-20 | Outpatient (CLI) | payer MEDICARE, BC, SELFPAY ==
[2022-04-22 18:07] LABS: QNTFERON TB Mitogen Value > 10.00 IU/mL (.); QNTFERON TB Nil Value 0.02 IU/mL (.); QNTFERON TB1+ Ag Value 0.02 IU/mL (.); QNTFERON TB2+ Ag Value 0.03 IU/mL (.)
[2022-04-25 13:32] LABS: QNTIFERON TB Positive Criteria Negative (Negative)
== END | disposition home or self-care (01) ==
LOC: MTLAB 11:47
PROVIDERS: PCP Family Medicine; Referring Provider Internal Medicine Rheumatology; Visit Provider Internal Medicine Rheumatology
DX: L40.59 Other psoriatic arthropathy (principal); Z79.899 Other long term (current) drug therapy
CPT/HCPCS: 36415; 86480

== ENCOUNTER → 2022-10-17 | Outpatient (CLI) | payer MEDICARE, BC, SELFPAY ==
[2022-10-17 15:13] LABS: Absolute Lymphocyte Count 1.33 X10^3/uL (0.83-4.51); Basophil# 0.03 X10^3/uL; Basophil% 0.6 % (0-1); Eosinophil# 0.16 X10^3/uL; Eosinophils% 3.2 % (0-5); Hematocrit 40.9 % (37-47); Hemoglobin 12.8 g/dL (12.0-15.0); Lymphocyte # 1.33 X10^3/ul (0.83-4.51); Lymphocyte % 26.7 % (19-41); Mean Corp Hgb Conc 31.3 g/dL (32-36); Mean Corpuscular Hgb 26.2 pg (27.0-32.0); Mean Corpuscular Volume 83.8 fL (81-99); Mean Platelet Vol. 9.6 fl (6.2-12.0); Monocyte# 0.47 X10^3/uL; Monocyte% 9.4 % (0-10); NRBC Flagged by Analyzer 0 % (0-5); Neutrophil # 2.98 X10^3/uL (2.7-7.7); Neutrophil % 59.7 % (47-70); Platelet Count 394 K/mm3 (150-450); RBC Distribution Width CV 15.4 % (11.6-14.6); RBC Distribution Width SD 46.8 fl (35.1-43.9); Red Blood Count 4.88 M/mm3 (4.2-5.4)
[2022-10-17 15:39] LABS: ALB/GLOB Ratio 1.4 RATIO (0.9-2.4); AST(SGOT) 16 U/L (15-37); Alanine Aminotransfer ALT/SGPT 22 U/L (13-56); Albumin, Serum 4.6 g/dL (3.2-5.0); Alkaline Phosphatase 104 U/L (45-117); Anion Gap 5 (5-15); BUN 13 mg/dL (7-18); BUN/Creat Ratio 18.1 RATIO (10-20); Calcium,Total 10.1 mg/dL (8.5-10.1); Chloride 103 mmol/L (98-107); Creatinine, Serum 0.72 mg/dL (0.55-1.02); EST Glomerular Filtration Rate 85 mL/min (>60); Est Glom Filt Rate - Afr Amer 102 mL/min (>60); Globulin 3.3 g/dL (2.2-4.2); Glucose 89 mg/dL (74-106); Potassium 3.9 mmol/L (3.5-5.1); Protein, Total 7.9 g/dL (6.4-8.2); Sodium Level 136 mmol/L (136-145)
== END | disposition home or self-care (01) ==
LOC: MTLAB 11:50
PROVIDERS: PCP Family Medicine; Referring Provider Internal Medicine Rheumatology; Visit Provider Internal Medicine Rheumatology
DX: L40.59 Other psoriatic arthropathy (principal); Z79.899 Other long term (current) drug therapy
CPT/HCPCS: 36415; 80053; 85025

== ENCOUNTER → 2023-03-07 | Outpatient (CLI) | payer MEDICARE, BC, SELFPAY ==
[2023-03-07 15:17] LABS: Absolute Lymphocyte Count 1.29 X10^3/uL (0.83-4.51); Absolute Neutrophil Count 2.8 X10^3/uL (2.0-7.7); Basophil# 0.04 X10^3/uL; Basophil% 0.8 % (0-1); Eosinophil# 0.24 X10^3/uL; Eosinophils% 4.9 % (0-5); Hematocrit 38.6 % (37-47); Hemoglobin 12.1 g/dL (12.0-15.0); Lymphocyte # 1.29 X10^3/ul (0.83-4.51); Lymphocyte % 26.3 % (19-41); Mean Corp Hgb Conc 31.3 g/dL (32-36); Mean Corpuscular Hgb 26.8 pg (27.0-32.0); Mean Corpuscular Volume 85.4 fL (81-99); Mean Platelet Vol. 9.3 fl (6.2-12.0); Monocyte% 10.2 % (0-10); NRBC Flagged by Analyzer 0 % (0-5); Neutrophil # 2.83 X10^3/uL (2.7-7.7); Neutrophil % 57.6 % (47-70); Platelet Count 429 K/mm3 (150-450); RBC Distribution Width CV 15.3 % (11.6-14.6); RBC Distribution Width SD 47.5 fl (35.1-43.9); Red Blood Count 4.52 M/mm3 (4.2-5.4); White Blood Count 4.9 K/mm3 (4.4-11.0)
[2023-03-07 16:41] LABS: ALB/GLOB Ratio 1.3 RATIO (0.9-2.4); AST(SGOT) 16 U/L (15-37); Alanine Aminotransfer ALT/SGPT 29 U/L (13-56); Albumin, Serum 4.2 g/dL (3.2-5.0); Alkaline Phosphatase 99 U/L (45-117); Anion Gap 6 (5-15); BUN 9 mg/dL (7-18); Calcium,Total 9.3 mg/dL (8.5-10.1); Chloride 106 mmol/L (98-107); Creatinine, Serum 0.75 mg/dL (0.55-1.02); EST Glomerular Filtration Rate 80 mL/min (>60); Est Glom Filt Rate - Afr Amer 97 mL/min (>60); Globulin 3.2 g/dL (2.2-4.2); Glucose 101 mg/dL (74-106); Potassium 3.8 mmol/L (3.5-5.1); Protein, Total 7.4 g/dL (6.4-8.2); Sodium Level 141 mmol/L (136-145)
== END | disposition home or self-care (01) ==
LOC: MTLAB 12:54
PROVIDERS: PCP Family Medicine; Referring Provider Internal Medicine Rheumatology; Visit Provider Internal Medicine Rheumatology
DX: L40.59 Other psoriatic arthropathy (principal); Z79.899 Other long term (current) drug therapy
CPT/HCPCS: 36415; 80053; 85025

== ENCOUNTER → 2023-07-17 | Outpatient (CLI) | payer MEDICARE, BC, SELFPAY ==
--- OUTSIDE RECORDS SUMMARY | 2023-07-17 11:48 | XMS RPT_ITS | CCD ---
Author Name Unknown Address [address] [place] [address] Organization [facility] Care Team Providers Care Registered Nurse Bone Marrow Transplant Name Role Phone Rc Williamson Attending Unavailable Rc Williamson Primary Care Unavailable Rc Williamson Admitting Unavailable Rc Williamson Admitting Unavailable Rc Williamson Attending Unavailable Rc Williamson Primary Care Unavailable Rc Williamson Attending Unavailable Rc Williamson Primary Care Unavailable Rc Williamson Admitting Unavailable Rc Williamson Attending Unavailable Rc Williamson Primary Care Unavailable Rc Williamson Admitting Unavailable Rc Williamson Attending Unavailable Rc Williamson Primary Care Unavailable Rc Williamson Admitting Unavailable Rc Williamson Admitting Unavailable Rc Williamson Attending Unavailable Rc Williamson Primary Care Unavailable Rc Williamson Attending Unavailable Rc Williamson Primary Care Unavailable Rc Williamson Admitting Unavailable Rc Williamson Admitting Unavailable Rc Williamson Attending Unavailable Rc Williamson Primary Care Unavailable Rc Williamson Attending Unavailable cR Williamson Primary Care Unavailable Rc Williamson Unavailable Unavailable Rc Williamson Unavailable Unavailable Rc Williamson Unavailable Unavailable Rc Williamson Primary Care Provider RC WILLIAMSON Attending Unavailable RC WILLIAMSON Referring Unavailable RC WILLIAMSON Primary Care Unavailable RC WILLIAMSON Attending Unavailable RC WILLIAMSON Referring Unavailable RC WILLIAMSON Primary Care Unavailable RC WILLIAMSON Attending Unavailable RC WILLIAMSON Referring Unavailable RC WILLIAMSON Primary Care Unavailable Rc Williamson Primary Care Provider AIME MONTES Admitting Unavailable FAUZIA DUEÑAS Attending Unavailable AIME MONTES Referring Unavailable RC WILLIAMSON Primary Care Unavailable Rc Williamson Unavailable Unavailable Unavailable Rc Williamson MD Unavailable Unavailable Rc Williamson Unavailable Unavailable Rc Williamson MD Primary Care Provider [phone] Kim BRADFORD, Ashly Unavailable Unavailable Valeria BRADFORD, Unavailable Unavailable RC WILLIAMSON Attending Unavailable RC WILLIAMSON Primary Care Unavailable RC WILLIAMSON Primary Care Unavailable MAMMOGRAPHY-RIKI, SELF-REQUESTED Referring Unavailable LILIANA CHAMBERS Attending Unavailable RC WILLIAMSON Primary Care Unavailable LILIANA CHAMBERS Attending Unavailable RC WILLIAMSON Primary [facility] Unavailable MAMMOGRAPHY-RIKI, SELF-REQUESTED Referring Unavailable Allergies Allergy Classification Reported Allergen(s) Allergy Type Date of Onset Reaction(s) Facility Adhesive Tape (3 sources) Adhesive Tape Substance Allergy [facility] Work Phone: Amitriptyline (4 sources) Amitriptyline; Translations: [AMITRIPTYLINE] Drug Allergy 4 Hives [facility] Repository Doxepin (4 sources) Doxepin; Translations: [DOXEPIN] Drug Allergy 4 [facility] Repository HMG-CoA Reductase Inhibitors (statins) (7 sources) rosuvastatin; Translations: [ROSUVASTATIN] Drug Allergy 4 Itching, Muscle weakness [facility] Repository Pollen (3 sources) bee pollen Substance Allergy [facility] and Work Phone: Serotonin Reuptake Inhibitors (SSRIs) (1 source) FLUoxetine; Translations: [FLUOXETINE] Drug Allergy 4 [facility] Repository Sulfonamides (antibiotic) (4 sources) Sulfonamides (Antibiotic); Translations: [SULFA (SULFONAMIDE ANTIBIOTICS)] Drug Allergy 4 [facility] Rep[facility] Unclassified (1 source) ADHESIVE TAPE-SILICONES; Translations: [ADHESIVE TAPE-SILICONES] Propensity to adverse reactions to drug (disorder) 4 [facility] Repository (11 sources) Adhesive Tape; Translations: [Tape] Propensity to adverse reactions (disorder) [facility] Repository (11 sources) Amitriptyline; Translations: [Elavil] Drug Allergy [facility] Repository (12 sources) atorvastatin; Translations: [atorvastatin] Drug Allergy 3 Itching [facility] Repository (14 sources) Doxepin; Translations: [doxepin] Drug Allergy 4 Rash [facility] Repository (1 source) FLUoxetine; Translations: [Prozac] Drug Allergy [facility] Repository (11 sources) Pollen; Translations: [Pollen] Propensity to adverse reactions (disorder) [facility] Repository (11 sources) rosuvastatin; Translations: [Crestor] Drug Allergy Muscle weakness [facility] Repository (2 sources) Sulfamethoxazole ; Translations: [sulfamethoxazol e] Drug Allergy 3 [facility] Repository (10 sources) Sulfonamides (Antibiotic); Translations: [sulfa] drug allergy [facility] Work Phone: (3 sources) Amitriptyline; Translations: [AMITRIPTYLINE] Drug Allergy 4 Rash [facility] (2 sources) FLUoxetine Drug Allergy 4 Rash [facility] (3 sources) rosuvastatin; Translations: [ROSUVASTATIN] Drug Allergy 4 Myalgia [facility] (2 sources) Sulfonamides (Antibiotic) Propensity to adverse reactions to drug 4 Rash, Itching [facility] (2 sources) *Animal Dander Propensity to adverse reactions to substance 9 Itchy Eyes, Congestion [facility] (2 sources) *Seasonal Propensity to adverse reactions to substance 4 [facility] (2 sources) *Adhesive Tape Propensity to adverse reactions 4 Rash, Blisters [facility] (1 source) Pollen; Translations: [POLLEN EXTRACTS] Propensity to adverse reactions to drug (disorder) 3 [facility] 3 Repository (1 source) OTHER; Translations: [OTHER] Propensity to adverse reactions (disorder) 3 [facility] 3 Repository Medications Current Medications Medication Drug Class(es) Dates Sig (Normalized) Sig (Original) ALLERGEN IMMUNOTHERAPY (2 sources) ALLERGEN IMMUNOTHERAPY by Subcutaneous route. 0 Active ascorbic acid 1000 mg oral tablet (2 sources) Vitamin C take 1000 mg by mouth once daily Ascorbic Acid (VITAMIN C PO) Take 1,000 mg by mouth daily. 0 Active clobetasol propionate 0.5 mg/ml topical cream (6 sources) Corticosteroid Start: 05-31-2018 clobetasol 0.05 % Cream Apply 1 Application topically 2 times daily. 60 g 0 05/31/2018 Active Completed/Discontinued Medications Medication Drug Class(es) Dates Sig (Normalized) Sig (Original) acetaminophen 325 mg oral tablet (15 sources) Acetaminophen 32 5 MG Oral Tablet Quantity: 0 Refills: 0 Ordered: 23-Apr-2019 DO Active Problems Active Problems Problem Classification Problem Date Documented Da te Episodic/Chronic Anxiety disorders (16 sources) Anxiety; Translations: [Anxiety state, unspecified] Chronic Cancer of breast (2 sources) Malignant neoplasm of female breast; Translations: [Malignant neoplasm of unspecified site of unspecified female breast] Onset: 07-24-2013 04-23-2015 Chronic Cancer of breast (13 sources) History of malignant neoplasm of breast; Translations: [Personal history of malignant neoplasm of breast] Episodic Disorders of lipid metabolism (16 sources) Hyperlipidemia; Translations: [Other and unspecified hyperlipidemia] Chronic Immunizations and screening for infectious disease (6 sources) Patient encounter status; Translations: [Other specified vaccination] Episodic Inflammation; infection of eye (except that caused by tuberculosis or sexually transmitteddisease) (6 sources) Herpes zoster ophthalmicus; Translations: [Herpes zoster with other ophthalmic complications] Episodic Mood disorders (17 sources) Depressive disorder; Translations: [Recurrent major depression] Chronic Past or Other Problems Problem Classification Problem Date Documented Da te Episodic/Chronic Deficiency and other anemia (1 source) Anemia; Translations: [Anemia, unspecified] Episodic Malignant neoplasm without specification of site (2 sources) Malignant epithelial neoplasm; 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, unspecified] Onset: 07-24-2013 Resolved: 07-24-2013 07-24-2013 Chronic Mood disorders (2 sources) Mood disorders Onset: 12-24-2021 12-24-2021 Other non-traumatic joint disorders (1 source) Knee pain; Translations: [Pain in joint, lower leg] Episodic Other screening for suspected conditions (not mental disorders or infectious disease) (17 sources) Increased glucose level; Translations: [Other abnormal glucose] Onset: 12-24-2021 Episodic Residual codes; unclassified (3 sources) Needs influenza immunization; Translations: [Need for prophylactic vaccination and inoculation against influenza] Episodic Residual codes; unclassified (10 sources) History of influenza vaccination; Translations: [Other specified conditions influencing health status] Resolved: 08-06-2020 Episodic NEGATED: Highlighted row has not occurred!Residual codes; unclassified (6 sources) Disease Episodic Results Test Name Value Interpretation Reference Range Facil ity Vital Signs Date Time Vital Sign Value Performing Clinician Facility 12-24-2021 11:03-0400 Body mass index (BMI) [Ratio] 30.13 kg/m2 Liliana Chambers [employer] Work Phone: [facility] 12-24-2021 11:03-0400 Body temperature 98.49 [degF] Liliana Chambers [employer] Work Phone: [facility] 12-24-2021 11:03-0400 Body weight 69.4 kg Liliana Chambers [employer] Work Phone: [facility] 12-24-2021 11:03-0400 Diastolic blood pressure 67 mm[Hg] Liliana Chambers [employer] Work Phone: [facility] 12-24-2021 11:03-0400 Heart rate 88 /min Liliana Chambers [employer] Work Phone: [facility] 12-24-2021 11:03-0400 Systolic blood pressure 137 mm[Hg] Liliana Chambers [employer]PER[employer] Work Phone: [facility] 08-20-2021 11:12-0500 Body height 149.86 cm Rc Williamson Work Phone: [facility] [employer] Work Phone: 08-20-2021 11:12-0500 Body mass index (BMI) [Ratio] 30.56 kg/m2 Rc Williamson Work Phone: [facility] Work Phone: 08-20-2021 11:12-0500 Body surface area Derived from formula 1.64 m2 Rcsaida Williamson Work Phone: [facility] Work Phone: 08-20-2021 11:12-0500 Body weight 68.63 kg Rc Job Vinicio Work Phone: [facility] Work Phone: 08-20-2021 11:12-0500 Diastolic blood pressure 78 mm[Hg] Rcsaida Williamson Work Phone: [facility] Work Phone: 08-20-2021 11:12-0500 Heart rate 88 /min Rc Williamson Work Phone: [facility] Work Phone: 08-20-2021 11:12-0500 Systolic blood pressure 138 mm[Hg] Rc Williamson Work Phone: [facility] Work Phone: 02-19-2021 11:16-0400 Body height 149.86 cm Rcsaida Williamson Work Phone: [facility] Work Phone: 02-19-2021 11:16-0400 Body mass index (BMI) [Ratio] 30.12 kg/m2 Rcsaida Williamson Work Phone: [facility] Work Phone: 02-19-2021 11:16-0400 Body surface area Derived from formula 1.63 m2 Rc Williamson Work Phone: [facility] Work Phone: 02-19-2021 11:16-0400 Body temperature 97.3 [degF] Rc Williamson Work Phone: [facility] Work Phone: 02-19-2021 11:16-0400 Body weight 67.65 kg Rc Williamson Work Phone: [facility] Work Phone: 02-19-2021 11:16-0400 Diastolic blood pressure 72 mm[Hg] Rc Williamson Work Phone: [facility] Work Phone: 02-19-2021 11:16-0400 Heart rate 84 /min Rc Williamson Work Phone: [facility] Work Phone: 02-19-2021 11:16-0400 Systolic blood pressure 120 mm[Hg] Rc Williamson Work Phone: [facility] Work Phone: 02-09-2021 10:21-0400 Body height 149.86 cm Rc Williamson Work Phone: [facility] [address] Work Phone: 02-09-2021 10:21-0400 Body mass index (BMI) [Ratio] 30.5 kg/m2 Rc Williamson Work Phone: [facility] [address] Work Phone: 02-09-2021 10:21-0400 Body surface area Derived from formula 1.64 m2 Rc Williamson Work Phone: [facility] [address] Work Phone: 02-09-2021 10:21-0400 Body temperature 97.5 [degF] Rc Williamson Work Phone: [facility] [address] Work Phone: 02-09-2021 10:21-0400 Body weight 68.49 kg Rc Williamson Work Phone: [facility] [address] Work Phone: 02-09-2021 10:21-0400 Diastolic blood pressure 88 mm[Hg] Rc Williamson Work Phone: [facility] [address] Work Phone: 02-09-2021 10:21-0400 Heart rate 81 /min Rc Williamson Work Phone: [facility] [address] Work Phone: 02-09-2021 10:21-0400 Systolic blood pressure 151 mm[Hg] Rc Williamson Work Phone: [facility] [address] Work Phone: 01-12-2021 10:57-0400 Body height 149.86 cm Rc Williamson Work Phone: [facility] [address] Work Phone: 01-12-2021 10:57-0400 Body mass index (BMI) [Ratio] 30.75 kg/m2 Rc Williamson Work Phone: [facility] [address] Work Phone: 01-12-2021 10:57-0400 Body surface area Derived from formula 1.64 m2 Rc Williamson Work Phone: [facility] [address] Work Phone: 01-12-2021 10:57-0400 Body temperature 97.7 [degF] Rc Williamson Work Phone: [facility] [address] Work Phone: 01-12-2021 10:57-0400 Body weight 69.06 kg Rc Williamson Work Phone: [facility] [address] Work Phone: 01-12-2021 10:57-0400 Diastolic blood pressure 88 mm[Hg] Rc Job Williamson Work Phone: [facility] 300 Work Phone: 01-12-2021 10:57-0400 Systolic blood pressure 116 mm[Hg] Rc Williamson Work Phone: [facility] Work Phone: 12-09-2020 10:57-0400 Body height 149.86 cm Rc Job Williamson Work Phone: [facility] Work Phone: 12-09-2020 10:57-0400 Body mass index (BMI) [Ratio] 30.3 kg/m2 Rc Williamson Work Phone: [facility] Work Phone: 12-09-2020 10:57-0400 Body surface area Derived from formula 1.63 m2 Rc Williamson Work Phone: [facility] Work Phone: 12-09-2020 10:57-0400 Body temperature 97.7 [degF] Rc Williamson Work Phone: [facility] Work Phone: 12-09-2020 10:57-0400 Body weight 68.04 kg Rc Williamson Work Phone: [facility] Work Phone: 12-09-2020 10:57-0400 Diastolic blood pressure 78 mm[Hg] Rc Williamson Work Phone: [facility] Work Phone: 12-09-2020 10:57-0400 Systolic blood pressure 122 mm[Hg] Rc Williamson Work Phone: [facility] Work Phone: 04-24-2019 13:52-0500 BMI (Body Mass Index) 32.2 kg/m2 Rc Williamson [facility] [employer] Work Phone: 04-24-2019 13:52-0500 Body weight 72.32 kg Rc Williamson [facility] [employer] [facility] Work Phone: 04-24-2019 13:52-0500 BP Diastolic 72 mm[Hg] Rc Williamson [facility] [employer] Work Phone: Encounters Encounter Date Encounter Type Care Provider Facility Start: 08-19-2022 End: 08-19-2022 ambulatory [facility] Start: 08-19-2022 End: 08-19-2022 Encounter for general adult medical examination without abnormal findings [facility] Start: 01-17-2022 Rx Renewal Rc Williamson Work Phone: [facility] Work Phone: Start: 12-24-2021 ambulatory RC WILLIAMSON Facility:[facility] Start: 12-24-2021 End: 12-24-2021 Office outpatient visit 15 minutes Liliana GARCIA Work Phone: Division of Surgical Oncology Procedures Date Procedure Procedure Detail Performing Clinician Start: 12-24-2021 Screening mammography bi 2-view breast inc cad Self-Requested [facility] Work Phone: Start: 10-31-2019 Radiologic exam knee complete 4/more views External Transcribed Start: 10-18-2019 Xray Ankle 3 View Rc Williamson Start: 10-18-2019 Xray Tibia + Fibula 2 View Rc Williamson Start: 10-18-2019 Radiologic examination tibia & fibula 2 views External Transcribed Start: 10-18-2019 X-ray of right ankle External Transcribe d Start: 04-24-2019 Assay of thyroid stimulating hormone tsh Rc Williamson Start: 04-24-2019 CBC W Auto Differential panel - Blood Rc Williamson Start: 04-24-2019 Comprehensive metabolic 2000 panel Rc Williamson Start: 04-24-2019 Hemoglobin glycosylated a1c Rc Williamson Start: 04-24-2019 Lipid panel Rc Williamson Anal fistulectomy Rc sanchez Decompression of median nerve Rc Williamson Work Phone: Esophagogastroduodenoscopy J josh Williamson Excision of bunion Rc Perez es Hysterectomy cR Williamson Lumpectomy of breast Rc jerez Prosthetic arthroplasty of the hip Rc Williamson Tonsillectomy and adenoidectomy Rc Williamson Total replacement of hip Mike Williamson Work Phone: Plan of Treatment Date Care Activity Detail Author Start: 12-24-2022 Screening mammography MAMMOGRAM SCREENING DISCUSSION [facility] Start: 08-19-2022 EPV, Provider: Rc Williamson, Status: Pen, Time: 11:00 AM EPV, Provider: Rc Williamson, Status: Pen, Time: 11:00 AM [facility] Work Phone: Start: 02-10-2022 Influenza vaccination INFLUENZA VACCINE (#1) [facility] Start: 08-20-2021 EPV, Provider: Rc Williamson, Status: Pen, Time: 11:00 AM EPV, Provider: Rc Williamson, Status: Pen, Time: 11:00 AM [facility] Work Phone: Start: 02-19-2021 EPV, Provider: Rc Williamson, Status: Pen, Time: 11:00 AM EPV, Provider: Rc Williamson, Status: Pen, Time: 11:00 AM [facility] Work Phone: Start: 02-09-2021 POV, Provider: Aime Montes, Status: Pen, Time: 10:30 AM POV, Provider: Aime Montes, Status: Pen, Time: 10:30 AM [facility] Work Phone: Start: 01-12-2021 POV, Provider: Aime Montes, Status: Pen, Time: 10:30 AM POV, Provider: Aime Montes, Status: Pen, Time: 10:30 AM [facility] Work Phone: Start: 12-30-2020 [facility], Provider: Aime Montes, Status: Pen, Time: 11:00 AM [facility], Provider: Aime Montes, Status: Daryl, Time: 11:00 AM [facility] Work Phone: Start: 02-11-2020 Influenza vaccination given [facility] Start: 10-23-2019 CBC W Auto Differential panel - Blood Complete Blood Count [facility] Work Phone: Start: 10-23-2019 Comprehensive metabolic 2000 panel Comprehensive Metabolic Panel [facility] Work Phone: Start: 10-23-2019 HbA1c (Bld) [Mass fraction] [facility] Work Phone: Start: 10-23-2019 TSH Qn TSH - Thyroid Stimulating Hormone, Serum [facility] Work Phone: Start: 10-18-2019 [facility] Work Phone: Start: 01-06-2017 Pneumococcal vaccination Pneumococcal Vaccine Age 65+ (2 of 2 - PCV13) [facility] Start: 2015 Fall risk assessment Falls Risk Assessment [facility] Start: 2015 Pneumococcal vaccination [facility] Start: 2000 Administration of herpes zoster vaccine Zoster Vaccines (1 of 2) [facility] Start: 2000 Screening for malignant neoplasm of colon [facility] Start: 2000 Zoster vaccine hzv live for subcutaneous use ZOSTER (SHINGLES) VACCINE (1 of 2) [facility] Start: 1995 Colonoscopy COLORECTAL CANCER SCREENING DISCUSSION [facility] Start: 1990 Fasting lipid profile LIPID SCREENING [facility] Start: 1971 Screening for malignant neoplasm of cervix CERVICAL CANCER SCREENING DISCUSSION [facility] Start: 1969 Third diphtheria, tetanus and acellular pertussis (DTaP) vaccination TDAP (ADULT) [facility] Start: 1968 Hepatitis C antibody, confirmatory test Hepatitis C Screening [facility] Start: 1968 Tetanus vaccination TETANUS [facility] Start: 1966 COVID-19 Vaccine (1) COVID-19 Vaccine (1) [facility] Start: 1962 Adolescent depression screening assessment Depression Screening (PHQ9) [facility] Start: 1953 History and physical examination, annual for health maintenance Wellness Visit [facility] Start: 1950 Depression screening using PHQ-9 (Patient Health Questionnaire 9) score Depression Screening (PHQ9) [facility] Start: 1950 Fall risk assessment Falls Risk Assessment [facility] Start: 1950 Hepatitis C antibody, confirmatory test [facility] Start: 1950 Screening for malignant neoplasm of colon Colorectal Cancer Screening: Colonoscopy [facility] Start: 1950 Screening for osteoporosis [facility] Start: 1950 Screening mammography Mammogram [facility] Start: 1950 Tetanus vaccination Tetanus: Every 10yrs [facility] Lipid panel Lipid Panel [facility] Work Phone: Immunizations Immunization Date Immunization Notes Care Provider Barrett ballesteros 02-19-2021 Fluzone High-Dose Quadrivalent 0.7 ML Intramuscular Suspension Prefilled Syringe; Translations: [Fluzone High-Dose Quadrivalent 0.7 ML Intramuscular Suspension Prefilled Syringe] Rc Williamson Work Phone: [facility] Work Phone: Payers Date Payer Category Payer Unknown 2015 Medicare 2015 Medicare MEDICARE MEDICAR E PART A & B xxxxxxxxxxx 2015-Present [place] xxxxxxxxx[place] [id number] 2015 Medicare [id number] 2015 Medicare MEDICARE MEDICAR E PART A & B [id number] 2015-Present [place] [id number] 2015 Unknown JEFF BATEMAN OUT OF [facility] xxxxxxxxxxxx 2015-Present [id number] 2015 Unknown [id number] 2015 Unknown ANTHEM BCBS OUT OF [facility] [id number] 2015-Present [id number] 1950 Unknown [id number] 1950 Unknown [id number] [id number] 1950 Unknown [id number] [id number] 1950 Unknown [id number] [id number] 1950 Unknown [id number] [id number] 1950 Unknown [id number] [id number] 1950 Unknown [id number] [id number] 1950 Unknown [id number] [id number] 1950 Unknown [id number] [id number] 1950 Unknown [id number] [id number] 1950 Unknown [id number] [id number] 1950 Unknown [id number] [id number] 1950 Unknown [id number] [id number] 1950 Unknown [id number] [id number] 4 1950 Unknown [id number] [id number] 1950 Unknown [id number] [id number] 1950 Unknown [id number] [id number] Social History Date Type Detail Facility Start: 1950 Sex Assigned At Not on file O hiAReal Start: 07-24-2013 Patient has living will Patient has living will [facility] Work Phone: Start: 07-24-2013 Tobacco smoking status NHIS Ex-smoker [facility] End: 07-24-1998 History of tobacco use Current smoker [facility] End: 07-24-1998 History of tobacco use Cigarette Smoker [facility] Start: 07-24-2013 Tobacco use and exposure Smokeless tobacco non-user [facility] Start: 12-24-2021 Alcohol intake 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) [facility] Start: 12-18-2019 End: 12-24-2021 History SDOH Physical Activity DPW 5 [facility] Start: 12-18-2019 History SDOH Physica l Activity MPS 3 [facility] Start: 12-18-2019 End: 12-24-2021 History SDOH Stress 1 [facility] Start: 12-24-2021 History SDOH Transport Med 2 [facility] NEGATED: Highlighted row - - [facility] Work Phone: Functional Status Date Assessment Result Facility NEGATED: Highlighted row Functional performance Functional status health issues are not documented Disease [facility] Work Phone: Mental Status Date Assessment Result Facility NEGATED: Highlighted row Cognitive function [Interpretation] Cognitive status health issues are not documented Disease -[facility] Work Phone: Clinical Notes 12-30-2020 to 12-24-2021 Liliana Chambers APRNSHIN - 12/24/2021 11:[address] [place] - 12/24/2021 10:20 AM EDT Note Date & Type Note Facility 12-24-2021 History of Present illness Narrative HISTORY OF PRESENT ILLNESS Follow-up (Follow up with mammogram, patient has history of left breast cancer and lumpectomy, patient has no new breast complaints.) 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 The patient received postoperative adjuvant systemic chemotherapy with 4 cycles of dose dense doxorubicin and cyclophosphamide followed by 12 weeks of weekly paclitaxel, which she completed in October 2013. The patient received postoperative adjuvant whole breast radiation therapy locally, which she completed in March 2014. clinic note. The patient was last seen by Dr. Shaw 12/22/2020 and was PRN'd from clinic at that time. Kin returns today for at the time of her annual mammogram. She thought she previously felt a new left breast mass. She has stable, intermittent left breast pain. She denies skin changes, nipple changes, or nipple discharge. REVIEW OF SYSTEMS Negative for additional constitutional, HEENT, cardiovascular, respiratory, gastrointestinal, genitourinary, musculoskeletal, integumentary, neurological, psychiatric, endocrine, or hematologic/lymphatic complaints aside from that which was mentioned in the history of present illness. PHYSICAL EXAMINATION Vital Signs: BP 137/67 Pulse 88 Temp 98.5 F (36.9 C) Wt 69.4 kg (153 lb) BMI 30.13 kg/m Smoking Status Former Smoker The patient's left breast is slightly smaller than her right breast. She has a left breast surgical scar at 1-2:00. There are stable post radiation changes and skin thickening. There is a chronic purplish vascular skin pattern/telangestasia skin pattern to the skin in her upper lateral breast. Mild breast lymphedema. There are no dominant masses present in either breast. There are no nipple abnormalities bilaterally. There is no supraclavicular or axillary adenopathy present. There is no significant breast pain or tenderness on exam today. BREAST IMAGING IMPRESSION: No mammographic evidence of malignancy. BI-RADS: 2: Benign Recommendation: Routine mammography. Recommendation Laterality: Bilateral The current National Comprehensive Cancer Network and [employer] guidelines recommend women undergo a screening mammogram every year over the age of 40 and continue mammographic screening as long as they are in good health. Screening mammography under age 40 may occur for women who are at increased risk for breast cancer. 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 Her bilateral mammogram today is BIRADS 2. Plan: Clinical breast exam is without suspicious findings today. I reviewed the results of today's mammogram with her in detail. I reassured her that her breast imaging appears stable and benign. She should continue routine screening with annual bilateral mammography (due December 2022). We discussed returning to clinic on a PRN basis. We discussed I am comoftable with this, but can see her one more year if she would prefer. She was PRN'd by Dr. Shaw at her last appointment. I encouraged her to continue her breast imaging through [facility] and provided her with our scheduling information. I emphasized the importance of regular self breast exams. She will return to the [facility] Surgical Oncology clinic on a prn basis. We discussed breast lymphedema and she was provided with a self massage handout. Declined referral to physical therapy for more information. She will notify us if she has any breast problems in the future. Kin Dorman is agreeable to this plan and all of her questions were answered today. She was encouraged to call with any questions or concerns. documented in this encounter [facility] 12-24-2021 History of Present illness Narrative Patient offered a medical customer operations representative for sensitive exam. Pt declined documented in this encounter [facility] 12-31-2020 Note PROCEDURE DETAILS Preoperative Diagnosis: Carpal tunnel syndrome, right upper limb, G56.01 Postoperative Diagnosis: Carpal tunnel syndrome, right upper limb, G56.01 Surgeon: Aime Montes Resident/Fellow/Other First Responder: None of these were associated with this case Procedure: 1. R CTR Anesthesia: Tony Weaver Estimated Blood Loss: less than 5 ml Findings: as noted above Specimens(s) Collected: no, Complications: none Tourniquet Times: 8 minutes Patient Returned To/Condition: stable to pacu Operative Report: Indicationspatient presented to the outpatient orthopedic surgical office with numbness and tingling in the median nerve distribution patient tried multiple conservative measures including splints oral medication with no improvement of the symptoms the risk benefits alternatives and indications for treating carpal tunnels syndrome were discussed in detail. EMG evidence did suggest carpal tunnel syndrome as well as physical exam which was consistent with carpal tunnel syndrome surgical treatment injection and further splinting were discussed as well as the risks and benefits of continued nerve compression overall operative time. Patient did wish to proceed with surgical intervention. Written informed consent was at obtained after discussion of the risk benefits alternatives Description of procedurepatient was taken the preoperative holding area once again the risk benefits alternatives indications were discussed the operative site was marked agreed upon the patient was then taken to the operative room by nursing anesthesia staff. The patient was then placed on the operating table in the supine position all bony prominences well-padded and protected the arms extended onto a radiolucent arm board and a well-padded tourniquet was placed on the forearm. Operative timeout was undertaken identifying correct patient site and procedure all in agreement. Preoperative antibiotics were administered prior to incision the upper extremity was then prepped and draped in typical fashion. After prepping and draping Esmarch bandage used to exsanguinate the upper extremity tourniquet was inflated 200 mmHg. A longitudinal incision was made in the palm overlying the transverse carpal ligament. This was done using a 15 blade the subcutaneous tissue was bluntly dissected to the level of the palmar fascia with a 15 blade was then used to incise in line with the skin incision in the palmar fascia. Bipolar cautery was used to provide hemostasis in the wound edges. This exposed the transverse carpal ligament and the palmar stress palmaris brevis was noted mobilized radially and the transverse carpal ligament was incised sharply using a [place] blade this exposed some of the contents of the canal and the proximal distal extents of the ligament were then released using blunt scissors under direct visualization after full release proximally and distally their contents of the carpal tunnel were evaluated there is an hourglass deformity indicative of compressive pathology. The radial leaflet was elevated in the radial border of the nerve as well as the recurrent motor branch were visualized. The wound was then copious irrigated with normal saline solution and the skin was closed with 4-0 Prolene in a horizontal mattress fashion. Xeroform 4 x 4 and a well-padded volar splint was placed on the forearm the patient was awakened from anesthesia transferred to [facility] taken to PACU in stable condition. Patient tolerated procedure without complication all the sponge counts were correct. Postoperative course patient will limit weightbearing on the upper extremity. Keep the splint on for 3 days at which point he can move insert shower following postoperative instructions. They should limit activity and weightbearing through the hand but work on range of motion of the fingers. Given a short pain medicine prescription follow-up in 10 days for stitch removal Attestation: Note Completion: Attending AttestationI performed the procedure without a resident Electronic Signatures: Aime Montes) (Signed 31-Dec-2020 07:49) Authored: Post-Operative Note, Chart Review, Note Completion Last Updated: 31-Dec-2020 07:49 by Aime Montes) [facility] 12-30-2020 Note History & Physical R eviewed: I have reviewed the History and Physical dated: 30-Dec-2020 History and Physical reviewed and relevant findings noted. Patient examined to review pertinent physical findings.: No significant changes Home Medications Reviewed: no changes noted Allergies Reviewed: no changes noted ERAS (Enhanced Recovery After Surgery): ERAS Patient: no Consent: COVID-19 Consent: COVID-19 Risk ConsentSurgeon has reviewed estrada risks related to the risk of joe COVID-19 and if they contract COVID-19 what the risks are. Electronic Signatures: Aime Montes) (Signed 30-Dec-2020 07:24) Authored: History & Physical Reviewed, ERAS, Consent, Note Completion Last Updated: 30-Dec-2020 07:24 by Aime Montes ([facility] Visit for screening mammogram Other screening mammogram [facility]* Pt presents via telephone to discuss her bone density. * She has osteoporosis and high fracture risk. * We discussed fracture risk, weight bearing exercise, adequate calcium and vitamin D intake. We discussed treatment options, risks, benefits and side effects and risks of no treatment, namely worsening osteoporosis and increasing fracture risk. At this time, she declines treatment. Six minutes. [employer] [facility] [employer] Work Phone: History of Present illness NarrativePatient is a pleasant 70-year-old female who presents today in follow-up regarding her right open carpal tunnel release. She is done very well since surgery. She had no longer has any symptoms along the median nerve of the right hand. She does have some appropriate postoperative incisional tenderness but otherwise [facility] Work Phone: History of Present illness NarrativePatient is a very pleasant 70-year-old female presents today in follow-up with regards to her rightwrist open carpal tunnel release. She is done exceedingly well following her surgical intervention she denies any numbness and tingling she occasionally has some pillar pain but this is only after she is been very active. She had no trouble with her scar is very pleased with [facility] Work Phone: History of Present illness Narrative* Pt presents for followup from her eye doctor. * She has ocular zoster, and will need acyclovir for life . Her eye doctor has strongly suggested to her per patient that I prescribe her medicine for her, he will continue to see her and monitor and bill for the condition. * Pt states doing well otherwise, denies other problems or concerns. * Agrees to high dose influenza vaccine today. [employer] [facility] [employer] Work Phone: History of Present illness Narrative* The patient is being seen for the subsequent annual wellness visit. * Past Medical, Surgical and Family History: reviewed and updated in chart. * Medications and Supplements: Review of all medications by a prescribing practitioner or clinical pharmacist (such as prescriptions, OTCs, herbal therapies and supplements) documented in the medical record. * No, the patient is not using opioids. * Patient Self Assessment of Health Status: good. * Tobacco use: Non-User * Alcohol use: Non-User * Illicit drug use: Non-User * Current diet: unhealthy diet. * Exercise Frequency: the patient does not exercise. * Depression/Suicide Screening: . * During the past 2 weeks, the patient has not felt down, depressed or hopeless. * During the past 2 weeks, the patient has not felt little interest or pleasure in doing things. * Hearing Impairment: Patient has significant hearing impairment, She uses a hearing aid. * Cognitive Impairment: No cognitive impairment observed. * Bathing: performs independently. * Dressing: performs independently. * Walking: performs independently. * Managing Finances: performs independently. * Shopping: performs independently. * Managing Medications: performs independently. * Housework / Basic Home Maintenance: performs independently. * Falls Risk Screening:. KIN has not fallen in the last 6 months. * Home safety risk factors: none. * Advance directives:. Patient has living will. Patient has healthcare POA. * Also sees Dr Tovar, rheumatology [facility] Work Phone: Instructions* Name Dates Details Instructions not documented [facility] Work Phone: Summary Purpose Family History No Family History Records Found Mother Name Dates Details Family history of acute myoc ardial infarction(V17.3, Z82.49) Status:Active Family history of hyperlipid emia(V18.19, Z83.438) Status:Active Family history of colonic po lyps(V18.51, Z83.71) Status:Active Father Name Dates Details Family history of heart fail ure(V17.49, Z82.49) Status:Active Sister Name Dates Details Family history of colonic po lyps(V18.51, Z83.71) Status:Active Mother Name Dates Details Family history of acute myoc ardial infarction(V17.3, Z82.49) Status:Active Family history of hyperlipid emia(V18.19, Z83.438) Status:Active Family history of colonic po lyps(V18.51, Z83.71) Status:Active Father Name Dates Details Family history of heart fail ure(V17.49, Z82.49) Status:Active Sister Name Dates Details Family history of colonic po lyps(V18.51, Z83.71) Status:Active Unknown Family Member Name Dates Details Family history of heart fail ure: Father(V17.49, Z82.49) Status:Active Family history of acute myoc ardial infarction: Mother(V17.3, Z82.49) Status:Active Family history of hyperlipid emia: Mother(V18.19, Z83.438) Status:Active Family history of colonic po lyps: Mother, Sister(V18.51, Z83.71) Status:Active Unknown Family Member Name Dates Details Family history of heart fail ure: Father(V17.49, Z82.49) Status:Active Family history of acute myoc ardial infarction: Mother(V17.3, Z82.49) Status:Active Family history of hyperlipid emia: Mother(V18.19, Z83.438) Status:Active Family history of colonic po lyps: Mother, Sister(V18.51, Z83.71) Status:Active Unknown Family Member Name Dates Details Family history of heart fail ure: Father(V17.49, Z82.49) Status:Active Family history of acute myoc ardial infarction: Mother(V17.3, Z82.49) Status:Active Family history of hyperlipid emia: Mother(V18.19, Z83.438) Status:Active Family history of colonic po lyps: Mother, Sister(V18.51, Z83.71) Status:Active Unknown Family Member Name Dates Details Family history of heart fail ure: Father(V17.49, Z82.49) Status:Active Family history of acute myoc ardial infarction: Mother(V17.3, Z82.49) Status:Active Family history of hyperlipid emia: Mother(V18.19, Z83.438) Status:Active Family history of colonic po lyps: Mother, Sister(V18.51, Z83.71) Status:Active Unknown Family Member Name Dates Details Family history of heart fail ure: Father(V17.49, Z82.49) Status:Active Family history of acute myoc ardial infarction: Mother(V17.3, Z82.49) Status:Active Family history of hyperlipid emia: Mother(V18.19, Z83.438) Status:Active Family history of colonic po lyps: Mother, Sister(V18.51, Z83.71) Status:Active Mother Name Dates Details Family history of acute myoc ardial infarction(V17.3, Z82.49) Status:Active Family history of hyperlipid emia(V18.19, Z83.438) Status:Active Family history of colonic po lyps(V18.51, Z83.71) Status:Active Father Name Dates Details Family history of heart fail ure(V17.49, Z82.49) Status:Active Sister Name Dates Details Family history of colonic po lyps(V18.51, Z83.71) Status:Active Unknown Family Member Name Dates Details Family history of heart fail ure: Father(V17.49, Z82.49) Status:Active Family history of acute myoc ardial infarction: Mother(V17.3, Z82.49) Status:Active Family history of hyperlipid emia: Mother(V18.19, Z83.438) Status:Active Family history of colonic po lyps: Mother, Sister(V18.51, Z83.71) Status:Active Unknown Family Member Name Dates Details Family history of heart fail ure: Father(V17.49, Z82.49) Status:Active Family history of acute myoc ardial infarction: Mother(V17.3, Z82.49) Status:Active Family history of hyperlipid emia: Mother(V18.19, Z83.438) Status:Active Family history of colonic po lyps: Mother, Sister(V18.51, Z83.71) Status:Active Unknown Family Member Name Dates Details Family history of heart fail ure: Father(V17.49, Z82.49) Status:Active Family history of acute myoc ardial infarction: Mother(V17.3, Z82.49) Status:Active Family history of hyperlipid emia: Mother(V18.19, Z83.438) Status:Active Family history of colonic po lyps: Mother, Sister(V18.51, Z83.71) Status:Active Unknown Family Member Name Dates Details Family history of heart fail ure: Father(V17.49, Z82.49) Status:Active Family history of acute myoc ardial infarction: Mother(V17.3, Z82.49) Status:Active Family history of hyperlipid emia: Mother(V18.19, Z83.438) Status:Active Family history of colonic po lyps: Mother, Sister(V18.51, Z83.71) Status:Active Unknown Family Member Name Dates Details Family history of heart fail ure: Father(V17.49, Z82.49) Status:Active Family history of acute myoc ardial infarction: Mother(V17.3, Z82.49) Status:Active Family history of hyperlipid emia: Mother(V18.19, Z83.438) Status:Active Family history of colonic po lyps: Mother, Sister(V18.51, Z83.71) Status:Active Advance Directives No Advanced Directives Records FoundDocuments on File Type Date Recorded Patient Swimming Pool Attendant Expl anation Advance Directives and Livin g Will 10/18/2019 12:08 PM Documents on File Type Date Recorded Patient Swimming Pool Attendant Expl anation Advance Directives and Livin g Will 10/31/2019 10:56 AM Documents on File Type Date Recorded Patient Swimming Pool Attendant Expl anation Advance Directives and Livin g Will 10/31/2019 10:56 AM Assessments Diagnosis Pain of lower extremity, unspecified laterality Diagnosis Right ankle pain, unspecified chronicity Diagnosis Right knee pain, unspecified chronicity Diagnosis Carpal tunnel syndrome of right wrist- Primary Reason for Referral Status Reason Specialty Diagnoses / Procedures Referred By Contact Referred To Contact Authorized Neurology Diagnoses Carpal tunnel syndrome of right wrist Aime Montes DO [address] [place] [address] Fauzia Dueñas MD [address] [place] [id number] Chief Complaint PT HERE FOR 10 DAY PO RIGHT CTR. SX 7/21/21. STATES HAND IS DOING GREAT. DENIES NUMBNESS AND TINGLING. MINIMAL BURNING. WEARING BRACE.4 WK PO R CTRChief Complaint: KIN DORMAN is here with a chief complaint of HERE TO DISCUSS HER ACYCLOVIR 400MG; CURRENTLY MANAGED BY DR GUERRERO; STATES HE IS REQUESTING JOJ TAKE OVER ORDERING THE MEDICATION. Additional Source Comments INFORMATION SOURCE (unrecogn ized section and content) DATE CREATED AUTHOR AUTHOR'S ORGANIZ ATION 11/01/2019 [facility] DATE CREATED AUTHOR AUTHOR'S ORGANIZ ATION 11/07/2020 [facility] DATE CREATED AUTHOR AUTHOR'S ORGANIZ ATION 01/05/2021 [facility] DATE CREATED AUTHOR AUTHOR'S ORGANIZ ATION 08/21/2021 [facility] DATE CREATED AUTHOR AUTHOR'S ORGANIZ ATION 08/22/2021 [employer] DATE CREATED AUTHOR AUTHOR'S ORGANIZ ATION 08/21/2022 [facility] DATE CREATED AUTHOR AUTHOR'S ORGANIZ ATION 11/18/2022 [facility] Quick Note - Kaitlin Smith TECHNOLOGIST - 10/18/2019 12:00 PM EDT Miscellaneous Notes (unrecog nized section and content) catarina and swetha wore surgical masks and gloves. Patient wore surgical mask documented in this encounter Reason for Visit (unrecogniz ed section and content) Specialty Diagnoses / Procedures Referred By Morgan t Referred To Contact Diagnoses Visit for screening mammogram Procedures MAMMO SCREENING WITH AMANDA BILATERAL MAMMO SCREENING BILATERAL Mammography-Riki Self-Requested [address] [place] [address] Referral ID Status Reason Start Date Expiration Date V isits Requested Visits Authorized [id number] New Request 10/01/2021 10/26/2022 1 1 Care Teams (unrecognized sec tion and content) Registered Nurse Bone Marrow Transplant Relationship Specialty Start Date End Date Rc Williamson MD PCP - General Family Medicine 07/16/13 Ashly Alvarez, RN Registered Nurse Surgical Oncology 07/24/13 Rebecca Shaw, RN Registered Nurse 09/11/13 FOR RECORDS PERTAINING TO PATIENTS WHO ARE OR HAVE BEEN ENROLLED IN A CHEMICAL DEPENDENCY/SUBSTANCEABUSE PROGRAM, SOME INFORMATION MAY BE OMITTED. This clinical summary was aggregated from multiple sources. Caution should be exercised in using it in the provision of clinical care. This summary normalizes information from multiple sources, and as a consequence, information in this document may materially change the coding, format and clinical context of patient data. In addition, data may be omitted in some cases. CLINICAL DECISIONS SHOULD BE BASED ON THE PRIMARY CLINICAL RECORDS. [facility] [employer] [facility]. provides no warranty or guarantee of the accuracy or completeness of information in this document.
[2023-07-17 15:38] LABS: Absolute Neutrophil Count 3.1 X10^3/uL (2.0-7.7); Basophil# 0.03 X10^3/uL; Basophil% 0.6 % (0-1); Eosinophil# 0.26 X10^3/uL; Hematocrit 36.6 % (37-47); Hemoglobin 11.6 g/dL (12.0-15.0); Lymphocyte % 25.2 % (19-41); Mean Corp Hgb Conc 31.7 g/dL (32-36); Mean Corpuscular Volume 85.1 fL (81-99); Mean Platelet Vol. 9.8 fl (6.2-12.0); Monocyte# 0.47 X10^3/uL; Monocyte% 9.1 % (0-10); NRBC Flagged by Analyzer 0 % (0-5); Neutrophil # 3.07 X10^3/uL (2.7-7.7); Neutrophil % 59.7 % (47-70); Platelet Count 404 K/mm3 (150-450); RBC Distribution Width CV 14.9 % (11.6-14.6); RBC Distribution Width SD 46.2 fl (35.1-43.9); White Blood Count 5.2 K/mm3 (4.4-11.0)
[2023-07-17 16:06] LABS: ALB/GLOB Ratio 1.4 RATIO (0.9-2.4); AST(SGOT) 14 U/L (15-37); Alanine Aminotransfer ALT/SGPT 24 U/L (13-56); Albumin, Serum 4.2 g/dL (3.2-5.0); Alkaline Phosphatase 106 U/L (45-117); Anion Gap 6 (5-15); BUN 12 mg/dL (7-18); BUN/Creat Ratio 16.8 RATIO (10-20); Calcium,Total 9.5 mg/dL (8.5-10.1); Chloride 101 mmol/L (98-107); Creatinine, Serum 0.72 mg/dL (0.55-1.02); EST Glomerular Filtration Rate 85 mL/min (>60); Est Glom Filt Rate - Afr Amer 103 mL/min (>60); Glucose 72 mg/dL (74-106); Potassium 3.4 mmol/L (3.5-5.1); Protein, Total 7.2 g/dL (6.4-8.2); Sodium Level 134 mmol/L (136-145)
== END | disposition home or self-care (01) ==
PROVIDERS: PCP Family Medicine; Referring Provider Internal Medicine Rheumatology; Visit Provider Internal Medicine Rheumatology
DX: L40.59 Other psoriatic arthropathy (principal); Z79.899 Other long term (current) drug therapy; M18.0 Bilateral primary osteoarthritis of first carpometacarpal joints; L40.8 Other psoriasis
CPT/HCPCS: 36415; 80053; 85025

== ENCOUNTER → 2024-01-22 | Outpatient (CLI) | payer MEDICARE, BC, SELFPAY ==
[2024-01-22 15:16] LABS: Absolute Lymphocyte Count 1.57 X10^3/uL (0.83-4.51); Absolute Neutrophil Count 3.1 X10^3/uL (2.0-7.7); Basophil# 0.07 X10^3/uL; Basophil% 1.2 % (0-1); Eosinophil# 0.38 X10^3/uL; Eosinophils% 6.7 % (0-5); Hematocrit 37.5 % (37-47); Hemoglobin 11.5 g/dL (12.0-15.0); Lymphocyte # 1.57 X10^3/ul (0.83-4.51); Lymphocyte % 27.9 % (19-41); Mean Corp Hgb Conc 30.7 g/dL (32-36); Mean Corpuscular Hgb 25.7 pg (27.0-32.0); Mean Corpuscular Volume 83.9 fL (81-99); Mean Platelet Vol. 9.6 fl (6.2-12.0); Monocyte# 0.48 X10^3/uL; Monocyte% 8.5 % (0-10); NRBC Flagged by Analyzer 0 % (0-5); Neutrophil # 3.12 X10^3/uL (2.7-7.7); Neutrophil % 55.5 % (47-70); Platelet Count 374 K/mm3 (150-450); RBC Distribution Width SD 45.9 fl (35.1-43.9); Red Blood Count 4.47 M/mm3 (4.2-5.4); White Blood Count 5.6 K/mm3 (4.4-11.0)
[2024-01-22 16:01] LABS: ALB/GLOB Ratio 1.2 RATIO (0.9-2.4); AST(SGOT) 15 U/L (15-37); Alanine Aminotransfer ALT/SGPT 21 U/L (13-56); Albumin, Serum 4.2 g/dL (3.2-5.0); Alkaline Phosphatase 110 U/L (45-117); Anion Gap 5 (5-15); BUN 13 mg/dL (7-18); BUN/Creat Ratio 18.9 RATIO (10-20); Calcium,Total 9.7 mg/dL (8.5-10.1); Chloride 103 mmol/L (98-107); Cholesterol 261 mg/dL (200); Creatinine, Serum 0.69 mg/dL (0.55-1.02); EST Glomerular Filtration Rate 89 mL/min (>60); Est Glom Filt Rate - Afr Amer 108 mL/min (>60); Globulin 3.4 g/dL (2.2-4.2); Glucose 93 mg/dL (74-106); High Density Lipoprotein 46 mg/dL; Protein, Total 7.6 g/dL (6.4-8.2); Sodium Level 135 mmol/L (136-145); Triglycerides 276 mg/dL; Very Low Density Lipoprotein 55 mg/dL (5-40)
[2024-01-22 17:12] LABS: Hemoglobin A1c 5.4 % (3.8-5.6)
== END | disposition home or self-care (01) ==
LOC: MTLAB 12:44
PROVIDERS: PCP Family Medicine; Referring Provider Internal Medicine Rheumatology; Visit Provider Internal Medicine Rheumatology
DX: L40.59 Other psoriatic arthropathy (principal); Z79.899 Other long term (current) drug therapy; M18.0 Bilateral primary osteoarthritis of first carpometacarpal joints; M65.341 Trigger finger, right ring finger; R73.09 Other abnormal glucose; E78.49 Other hyperlipidemia
CPT/HCPCS: 36415; 80053; 80061; 83036; 85025

== ENCOUNTER → 2024-07-05 | Outpatient (CLI) | payer MEDICARE, BC, SELFPAY ==
[2024-07-05 15:12] LABS: Absolute Neutrophil Count 3.5 X10^3/uL (2.0-7.7); Basophil# 0.05 X10^3/uL; Basophil% 0.8 % (0-1); Eosinophils% 4.9 % (0-5); Hemoglobin 11.1 g/dL (12.0-15.0); Lymphocyte % 26.3 % (19-41); Mean Corpuscular Hgb 24.3 pg (27.0-32.0); Mean Platelet Vol. 9.5 fl (6.2-12.0); Monocyte# 0.61 X10^3/uL; NRBC Flagged by Analyzer 0 % (0-5); Neutrophil # 3.51 X10^3/uL (2.7-7.7); Neutrophil % 57.7 % (47-70); Platelet Count 397 K/mm3 (150-450); RBC Distribution Width CV 16.3 % (11.6-14.6); RBC Distribution Width SD 48.5 fl (35.1-43.9); Red Blood Count 4.57 M/mm3 (4.2-5.4); White Blood Count 6.1 K/mm3 (4.4-11.0)
[2024-07-05 15:53] LABS: ALB/GLOB Ratio 1.2 RATIO (0.9-2.4); AST(SGOT) 21 U/L (15-37); Alanine Aminotransfer ALT/SGPT 35 U/L (13-56); Albumin, Serum 4.3 g/dL (3.2-5.0); Alkaline Phosphatase 115 U/L (45-117); Anion Gap 6 (5-15); BUN 12 mg/dL (7-18); BUN/Creat Ratio 15.7 RATIO (10-20); Calcium,Total 10.2 mg/dL (8.5-10.1); Chloride 103 mmol/L (98-107); Creatinine, Serum 0.76 mg/dL (0.55-1.02); EST Glomerular Filtration Rate 79 mL/min (>60); Est Glom Filt Rate - Afr Amer 95 mL/min (>60); Globulin 3.6 g/dL (2.2-4.2); Glucose 74 mg/dL (74-106); Potassium 4.1 mmol/L (3.5-5.1); Protein, Total 7.9 g/dL (6.4-8.2); Sodium Level 137 mmol/L (136-145)
== END | disposition home or self-care (01) ==
LOC: MTLAB 10:47
PROVIDERS: PCP Family Medicine; Referring Provider Internal Medicine Rheumatology; Visit Provider Internal Medicine Rheumatology
DX: L40.59 Other psoriatic arthropathy (principal); Z79.899 Other long term (current) drug therapy; M18.0 Bilateral primary osteoarthritis of first carpometacarpal joints; M65.341 Trigger finger, right ring finger
CPT/HCPCS: 36415; 80053; 85025

== ENCOUNTER → 2024-10-17 | Outpatient (CLI) | payer MEDICARE, BC, SELFPAY ==
[2024-10-17 13:33] LABS: Absolute Lymphocyte Count 1.35 X10^3/uL (0.83-4.51); Absolute Neutrophil Count 3.9 X10^3/uL (2.0-7.7); Basophil# 0.05 X10^3/uL; Basophil% 0.8 % (0-1); Eosinophil# 0.32 X10^3/uL; Eosinophils% 5.2 % (0-5); Hematocrit 35.7 % (37-47); Hemoglobin 10.9 g/dL (12.0-15.0); Lymphocyte # 1.35 X10^3/ul (0.83-4.51); Lymphocyte % 21.8 % (19-41); Mean Corp Hgb Conc 30.5 g/dL (32-36); Mean Corpuscular Hgb 25.1 pg (27.0-32.0); Mean Corpuscular Volume 82.3 fL (81-99); Mean Platelet Vol. 10.1 fl (6.2-12.0); Monocyte# 0.54 X10^3/uL; Monocyte% 8.7 % (0-10); NRBC Flagged by Analyzer 0 % (0-5); Neutrophil # 3.89 X10^3/uL (2.7-7.7); Platelet Count 409 K/mm3 (150-450); RBC Distribution Width CV 16.4 % (11.6-14.6); RBC Distribution Width SD 49.4 fl (35.1-43.9); Red Blood Count 4.34 M/mm3 (4.2-5.4); White Blood Count 6.2 K/mm3 (4.4-11.0)
[2024-10-17 14:10] LABS: ALB/GLOB Ratio 1.7 RATIO (0.9-2.4); AST(SGOT) 16 U/L (<=31); Alanine Aminotransfer ALT/SGPT 13 U/L (<=34); Albumin, Serum 4.6 g/dL (3.4-4.8); Alkaline Phosphatase 112 U/L (35-104); Anion Gap 12 (5-15); BUN 14 mg/dL (4-19); BUN/Creat Ratio 18.4 RATIO (10-20); Calcium,Total 9.8 mg/dL (7.6-11.0); Carbon Dioxide 24.9 mmol/L (21.0-32.0); Chloride 103 mmol/L (98-108); Creatinine, Serum 0.75 mg/dL (0.70-1.20); EST Glomerular Filtration Rate 84 (>60); Globulin 2.7 g/dL (2.2-4.2); Glucose 97 mg/dL (70-99); Potassium 4.3 mmol/L (3.3-5.1); Protein, Total 7.3 g/dL (5.9-8.4); Sodium Level 139 mmol/L (133-145); Total Bilirubin 0.21 mg/dL (0.00-1.30)
== END | disposition home or self-care (01) ==
LOC: MTLAB 09:54
PROVIDERS: PCP Family Medicine; Referring Provider Internal Medicine Rheumatology; Visit Provider Internal Medicine Rheumatology
DX: L40.59 Other psoriatic arthropathy (principal); Z79.899 Other long term (current) drug therapy
CPT/HCPCS: 36415; 80053; 85025

== ENCOUNTER → 2024-12-17 | Outpatient (CLI) | payer MEDICARE, BC, SELFPAY ==
[2024-12-17 15:49] LABS: Hematocrit 38.3 % (37-47); Hemoglobin 11.5 g/dL (12.0-15.0); Immature Granulocytes Count 0.050 X10^3/uL (0.0-0.0); Mean Corp Hgb Conc 30.0 g/dL (32-36); Mean Corpuscular Volume 82.4 fL (81-99); Mean Platelet Vol. 10.3 fl (6.2-12.0); NRBC Flagged by Analyzer 0 % (0-5); Platelet Count 347 K/mm3 (150-450); RBC Distribution Width CV 17.2 % (11.6-14.6); RBC Distribution Width SD 51.4 fl (35.1-43.9); Red Blood Count 4.65 M/mm3 (4.2-5.4); White Blood Count 8.7 K/mm3 (4.4-11.0)
[2024-12-17 16:47] LABS: AST(SGOT) 25 U/L (<=31); Alanine Aminotransfer ALT/SGPT 22 U/L (<=34); Albumin, Serum 4.5 g/dL (3.4-4.8); Alkaline Phosphatase 146 U/L (35-104); Anion Gap 15 (5-15); BUN 11 mg/dL (4-19); BUN/Creat Ratio 17.3 RATIO (10-20); Calcium,Total 10.0 mg/dL (7.6-11.0); Carbon Dioxide 22.4 mmol/L (21.0-32.0); Chloride 103 mmol/L (98-108); Globulin 2.9 g/dL (2.2-4.2); Glucose 104 mg/dL (70-99); Potassium 4.3 mmol/L (3.3-5.1)
[2024-12-19 16:09] LABS: PROEL- A/G Ratio 1.2 (0.7-1.7); PROEL- Albumin 3.8 g/dL (2.9-4.4); PROEL- Alpha-1 Globulin 0.4 g/dL (0.0-0.4); PROEL- Alpha-2 Globulin 1.1 g/dL (0.4-1.0); PROEL- Beta Globulin 1.3 g/dL (0.7-1.3); PROEL- Gamma Globulin 0.6 g/dL (0.4-1.8); PROEL- Globulin, Total 3.3 g/dL (2.2-3.9); PROEL- TOTAL PROTEIN 7.1 g/dL (6.0-8.5); PROEL-M-Spike Not Observed g/dL (Not Observed)
== END | disposition home or self-care (01) ==
LOC: MTLAB 13:28
PROVIDERS: PCP Family Medicine; Referring Provider Physician Assistant Medical; Visit Provider Physician Assistant Medical
DX: L30.9 Dermatitis, unspecified (principal)
CPT/HCPCS: 36415; 80053; 84165; 85025

== ENCOUNTER → 2025-01-07 | Outpatient (CLI) | payer MEDICARE, BC, SELFPAY ==
[2025-01-07 14:36] LABS: AST(SGOT) 22 U/L (<=31); Alanine Aminotransfer ALT/SGPT 21 U/L (<=34); Cholesterol 265 mg/dL (<=200); Low Density Lipoprotein Calc. 134 mg/dL; Triglycerides 473 mg/dL; Very Low Density Lipoprotein 95 mg/dL (5-40); cholesterol:hdl ratio screen 7.20
[2025-01-09 14:08] LABS: QNTFERON TB Mitogen Value 4.83 IU/mL (.); QNTFERON TB Nil Value 0.02 IU/mL (.); QNTFERON TB1+ Ag Value 0.03 IU/mL (.); QNTFERON TB2+ Ag Value 0.02 IU/mL (.); QNTIFERON TB Positive Criteria Negative (Negative)
== END | disposition home or self-care (01) ==
LOC: MTLAB 09:22
PROVIDERS: PCP Family Medicine; Referring Provider Physician Assistant Medical; Visit Provider Physician Assistant Medical
DX: L30.9 Dermatitis, unspecified (principal)
CPT/HCPCS: 36415; 80061; 84450; 84460; 86480

== ENCOUNTER → 2025-05-15 | Outpatient (CLI) | payer MEDICARE, BC, SELFPAY ==
[2025-05-15 12:49] LABS: Hematocrit 34.8 % (37-47); Hemoglobin 11.4 g/dL (12.0-15.0); Immature Granulocytes Count 0.040 X10^3/uL (0.0-0.0); Mean Corp Hgb Conc 32.8 g/dL (32-36); Mean Corpuscular Volume 82.3 fL (81-99); Mean Platelet Vol. 11.5 fl (6.2-12.0); NRBC Flagged by Analyzer 0 % (0-5); Platelet Count 134 K/mm3 (150-450); RBC Distribution Width CV 13.6 % (11.6-14.6); RBC Distribution Width SD 40.2 fl (35.1-43.9); Red Blood Count 4.23 M/mm3 (4.2-5.4); White Blood Count 6.0 K/mm3 (4.4-11.0)
[2025-05-15 13:22] LABS: AST(SGOT) 19 U/L (<=31); Alanine Aminotransfer ALT/SGPT 14 U/L (<=34); Albumin, Serum 4.7 g/dL (3.4-4.8); Alkaline Phosphatase 91 U/L (35-104); Anion Gap 12 (5-15); BUN 13 mg/dL (4-19); BUN/Creat Ratio 16.4 RATIO (10-20); Calcium,Total 10.0 mg/dL (7.6-11.0); Carbon Dioxide 23.7 mmol/L (21.0-32.0); Chloride 102 mmol/L (98-108); Globulin 2.4 g/dL (2.2-4.2); Glucose 97 mg/dL (70-99); Potassium 4.3 mmol/L (3.3-5.1)
== END | disposition home or self-care (01) ==
LOC: MTLAB 10:47
PROVIDERS: PCP Family Medicine; Referring Provider Internal Medicine Rheumatology; Visit Provider Internal Medicine Rheumatology
DX: L40.59 Other psoriatic arthropathy (principal); Z79.899 Other long term (current) drug therapy; M18.0 Bilateral primary osteoarthritis of first carpometacarpal joints; M65.341 Trigger finger, right ring finger
CPT/HCPCS: 36415; 80053; 85025